=== PATIENT | male | born 1935 | race Caucasian/White ===

== ENCOUNTER 2016-09-29 16:22 | Inpatient (IN) | payer OTHER, MEDICARE ==
[~2016-09-29] VITALS: Ht 182.9 cm; Wt 79.4 kg
[~2016-09-29 16:22] MED LIST: ASPIRIN EC325 MG PO; ATORVASTATIN CA40 MG PO; COLCRYS0.6 MG PO; EXELON13.3 MG/24 TOP; PLAVIX 75MG TAB75 MG PO; PREVACID 30MG30 MG PO; RAPAFLO8 MG PO; WELCHOL 625 MG625 MG PO; [UNRECOGNIZED DRUG - OTHER] INH
--- NOTE | 2016-09-29 17:05 | NUR ---
PT TO ED FOR WORSENING COUGH AND AMS FOR THE PAST FEW DAYS, SIB BY ESTER. REPORTING WORSENING WEAKNESS OVER PAST TWO DAYS WELL PRODUCTIVE COUGH WITH "WHITE AND SOMETIMES AYLIN PHLEGM" PT ALERT AND ORIENTED TO PERSON AND PLACE BUT NOT TO TIME, NORMALLY AX0X4.
--- NOTE | 2016-09-29 17:19 | ED INFLUENZA/URI COMPLAINT ---
History of Present Illness General Chief Complaint: Upper Respiratory Sx/Fever Stated Complaint: AMS,PNEUONIA Source: patient, family Exam Limitations: confusion Vital Signs & Intake/Output Vital Signs & Intake/Output Vital Signs Date Time Temp Pulse Resp B/P Pulse O2 O2 Flow FiO2 Ox Delivery Rate 10/01 2200 144 10/01 2100 149 10/01 2000 140 10/01 1906 94 Room Air Room Air 10/01 1605 Room Air Room Air 10/01 1603 98.1 78 20 160/68 97 Room Air 10/01 1027 122/70 10/01 0816 98 Room Air 10/01 0800 98.3 93 20 120/60 95 Room Air ED Intake and Output 10/01 0000 09/30 1200 Intake Total 1500 480 Output Total 1600 500 Balance -100 -20 Intake, IV 100 Intake, Oral 1400 480 Number 1 Bowel Movements Output, Urine 1600 500 Allergies Coded Allergies: NSAIDS (Non-Steroidal Anti-Inflamma (INCREASED RENAL FUNCTIONS 09/29/16) Triage Note: PT TO ED FOR WORSENING COUGH AND AMS FOR THE PAST FEW DAYS, SIB BY ESTER. REPORTING WORSENING WEAKNESS OVER PAST TWO DAYS WELL PRODUCTIVE COUGH WITH "WHITE AND SOMETIMES AYLIN PHLEGM" PT ALERT AND ORIENTED TO PERSON AND PLACE BUT NOT TO TIME, NORMALLY AX0X4. Triage Nurses Notes Reviewed? yes HPI: Patient is an 80 year old male sent in by Dr. Norman for evaluation of cough and altered mental status. Patient reports symptoms x 2-3 days. Cough with white sputum production. Intermittent dyspnea. Symptoms are mild currently at rest. Symptoms have been moderate to severe. Son has noticed increasing confusion over the past 1-2 days. Tmax of 99.1 with associated chills. Patient received an influenza vaccination this season. Denies chest pain, abdominal pain, nausea , vomiting. (ZOE DUCKWORTH) Reconcile Medications Apixaban (Eliquis) 2.5 MG TABLET 1 TAB PO BID BLOOD THINNER (Reported) Atorvastatin Calcium 40 MG TABLET 1 TAB PO DAILY CHOLESTEROL (Reported) Azithromycin 500 MG TABLET 1 TAB PO DAILY COPD Lansoprazole 30 MG CAPSULE.DR 1 CAP PO DAILY GI (Reported) Memantine HCl (Namenda XR) 28 MG CAP.SPR.24 1 CAP PO DAILY MEMORY (Reported) Metoprolol Tartrate 25 MG TABLET 1 TAB PO BID HEART/BP (Reported) Metoprolol Tartrate (Lopressor) 50 MG TABLET 1 TAB PO BID atrial fibrillatino . Prednisone 10 MG TABLET 1 TAB PO DAILY COPD please take: 30 mg(3 tabs) on 10/03,10/04 20 mg(2 tabs) on 10/05,10/06 10 mg(1 tab) on 10/07,10/08 please stop on 10/08. Psyllium Husk/Aspartame (Metamucil Powder) (Unknown Strength) POWDER (Unknown Dose) PO DAILY GI (Reported) Rivastigmine (Exelon) 13.3 MG/24 HOUR PATCH.TD24 1 PAT TOP DAILY MEMORY ( Reported) Saw [place] Fruit (Saw [place]) 450 MG CAPSULE 1 CAP PO DAILY SUPPLEMENT ( Reported) (LUAN WESTON,OBI Bourgeois) Past History Travel History Traveled to [place] past 21 day No Medical History Any Pertinent Medical History? 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 No (ZOE DUCKWORTH) Review of Systems Review of Systems Constitutional: Reports: chills, fever, malaise. EENTM: Reports: no symptoms. Respiratory: Reports: cough, short of breath, sputum production. Cardiovascular: Denies: chest pain, peripheral edema. GI: Denies: abdominal pain, nausea, vomiting. Genitourinary: Reports: no symptoms. Musculoskeletal: Reports: no symptoms. Skin: Reports: no symptoms. Neurological/Psychological: Reports: confusion. Denies: headache, numbness. Hematologic/Endocrine: Denies: bruising, bleeding. Immunologic/Allergic: Denies: splenectomy. (ZOE DUCKWORTH) Physical Exam Physical Exam General Appearance: alert, awake Head: atraumatic, normal appearance Eyes: Bilateral: normal appearance, PERRL, EOMI. Ears, Nose, Throat: normal ENT inspection, moist mucous membrane, hearing grossly normal, pharynx normal Neck: normal inspection, supple, full range of motion Respiratory: normal breath sounds, no respiratory distress, lungs clear Cardiovascular: tachycardia, irregularly irregular Peripheral Pulses: 2+ dorsalis pedis (R), 2+ dorsalis pedis (L) Gastrointestinal: soft, non-tender Back: normal inspection, normal range of motion Extremities: trace bilateral lower extremity edema Neurologic/Psych: no motor/sensory deficits, awake, alert, normal gait, disoriented to time Skin: intact, normal color, warm/dry Lymphatic: no anterior cervical saúl Core Measures Severe Sepsis Present: No Septic Shock Present: No (ZOE DUCKWORTH) Progress Differential Diagnosis: influenza, pneumonia, pharyngitis, sinusitis, afib with RVR, ACS, bacteremia, sepsis, uti Plan of Care: Orders Procedure Date/time Status THERAPIST ORDERS 10/01 2001 Complete MISSING MEDICATION FORM 10/01 1615 Active MAGNESIUM 10/01 0625 Complete Therapeutic Activities 10/01 UNK Complete Gait Training 10/01 UNK Complete Lab Add-on Test 10/01 UNK Active Occupational Tx Eval & Treat 10/01 UNK Active Therapeutic Activity 10/01 UNK Complete OT EVAL LOW COMPLEX 30 MIN 10/01 UNK Complete ADL/SelfCare 10/01 UNK Complete Nursing Misc 10/01 UNK Active CIWA 10/01 UNK Active URINE DRUGS OF ABUSE 09/29 1855 Complete ETHANOL 09/29 1645 Complete Current Medications Sig/Ines Start time Last Medication Dose Stop Time Status Admin Metoprolol Tartrate 6.25 MG ONCE ONE 10/01 2315 UNVr (Lopressor) 10/01 2316 Acetaminophen 650 MG Q6P PRN 09/29 2145 AC (Tylenol) Laboratory Tests 10/01/16 0625: Anion Gap 10, Estimated GFR 58 L, BUN/Creatinine Ratio 19.2, Magnesium 2.0, Total Bilirubin 3.1 H, Direct Bilirubin 0.8 H, AST 31, ALT 35, Alkaline Phosphatase 81, Total Protein 6.9, Albumin 4.0, CBC w Diff NO MAN DIFF REQ, RBC 4.57 L, MCV 97.3 H, MCH 32.0 H, RDW 13.1, MPV 8.9, Gran % 67.5, Lymphocytes % 17.5 L, Monocytes % 14.6 H, Eosinophils % 0, Basophils % 0.4, Absolute Granulocytes 4.5, Absolute Lymphocytes 1.2, Absolute Monocytes 1.0 H, Absolute Eosinophils 0, Absolute Basophils 0, PUBS MCHC 32.8 L, Retic Count 2.19 H 1820: Results of labs and imaging discussed with the patient and his son. Bilirubin chronically elevated. Patient continues with A. fib with ventricular rate ranging from 100 to 130 beats per minute, no significant improvement with fluid bolus. Call placed to patient's primary doctor. Discussed with Dr. Guadarrama. Discussed with Dr. Cervantes: will admit patient. (MAUREEN LAWRENCE,ZOE) Diagnostic Imaging: Viewed by Me: Radiology Read. Discussed w/RAD: Radiology Read. CXR Impression: PATIENT: BRANDIE BOLANOS PRESENT AGE: 80 PATIENT ACCOUNT NO: [id number] : 33 LOCATION: [facility] ORDERING PHYSICIAN: OBI GUADARRAMA MD SERVICE DATE: 09/29/16 EXAM TYPE: RAD - XRY-CHEST XRAY, PA AND LATERAL EXAMINATION: CHEST 2 VIEWS CLINICAL INFORMATION: Cough, fever. COMPARISON: None. TECHNIQUE: PA and lateral views of the chest were obtained. FINDINGS: The cardiac silhouette is not enlarged. Pacer leads overlie the right atrium and right ventricle. Intact midline sternal wires are present. The mediastinal and hilar contours are unremarkable. There are neither pleural effusions nor pneumothoraces. There are no consolidations. Intact bilateral humeral prostheses are present. There are no acute osseous abnormalities. IMPRESSION: No evidence for acute disease. DICTATED BY: AMANDA FAGAN MD DATE/ TIME DICTATED:09/29/161811 CUSTOMER EXPERIENCE PROFESSIONAL:MARCOS DATE/TIME TRANSCRIBED: 09/29/161811 CONFIDENTIAL, DO NOT COPY WITHOUT APPROPRIATE AUTHORIZATION. < Electronically signed in Other Vendor System> SIGNED BY: AMANDA FAGAN MD 09/29/161815 Initial ED EKG: atrial fibrillation with rapid ventricular rate, ST depression in V3 through V6, changed from previous EKG Prior EKG: changed Rhythm Strip: atrial fibrillation (ZOE DUCKWORTH) Departure Departure Time of Disposition: 1837 Disposition: STILL A PATIENT Condition: Stable Clinical Impression Primary Impression: Atrial fibrillation with RVR Secondary Impressions: Bronchitis, Hyperbilirubinemia Referrals: KIT NORMAN MD (PCP/Family) Departure Forms: Customer Survey General Discharge Information Admission Note Spoke With: AMBROCIO CERVANTES MD Documentation of Exam: Documentation of any treatments & extenuating circumstances including Concerns Regarding Discharge (functional status, medication knowledge or non-compliance, living conditions, etc.) that warrant an admission rather than observation: TELEMETRY MONITORING, RATE CONTROL(REQUIRED DOSE OF IV BETA NAKITA IN THE ED), FURTHER MONITORING DUE TO INCREASING CONFUSION WITH ACUTE CHANGE FROM HIS BASELINE, SERIAL EKG, CARDIOLOGY CONSULTATION (ZOE DUCKWORTH) Departure Prescriptions: Current Visit Scripts Metoprolol Tartrate (Lopressor) 1 TAB PO BID #60 TAB . Azithromycin 1 TAB PO DAILY #3 TAB Prednisone 1 TAB PO DAILY #20 TAB please take: 30 mg(3 tabs) on 10/03,10/04 20 mg(2 tabs) on 10/05,10/06 10 mg(1 tab) on 10/07,10/08 please stop on 10/08. PA/RESTAURANT GREETER Co-Sign Statement Statement: ED Attending supervision documentation- [X] I saw and evaluated the patient. I have also reviewed all the pertinent lab results and diagnostic results. I agree with the findings and the plan of care as documented in the PA's/RESTAURANT GREETER's documentation. [X] I have reviewed the ED Record and agree with the PA's/RESTAURANT GREETER's documentation. [] Additions or exceptions (if any) to the PAs/RESTAURANT GREETER's note and plan are summarized below: [] (LUAN WESTON,OBI Bourgeois) Critical Care Note Critical Care Note Critical Care Time: 30-74 min (ZOE DUCKWORTH)
--- NOTE | 2016-09-29 17:28 | NUR ---
IV EST. BLOOD WORK DRAWN AND SENT TO LAB: SST, LAV, BLUE, NAGEL AND PINK TOPS. FIRST SET OF CULTURES ALSO SENT TO LAB. PT TO XRAY VIA STRETCHER NOW.
[2016-09-29 17:42] LABS: ABSOLUTE BASOPHIL COUNT 0 /CUMM (0.0-0.2); ABSOLUTE EOSINOPHIL COUNT 0 /CUMM (0.0-0.7); ABSOLUTE GRANULOCYTE CT 3.3 /CUMM (1.4-6.5); ABSOLUTE LYMPH COUNT 0.6 /CUMM (1.2-3.4); ABSOLUTE MONOCYTE COUNT 0.6 /CUMM (0.10-0.60); BASOPHIL % 0.5 % (0.0-2.0); EOSINOPHIL % 0.3 % (0-5); GRANULOCYTE % 73.4 % (42.2-75.2); HEMATOCRIT 43.5 % (42-52); MEAN CORPUSCULAR HGB 32.8 PG (27.0-31.0); MEAN CORPUSCULAR HGB CONC 34.1 G/DL (33.0-37.0); MEAN CORPUSCULAR VOLUME 96.3 FL (80.0-94.0); MEAN PLATELET VOLUME 8.1 FL (7.4-10.4); PLATELET COUNT 122 /CUMM (130-400); RBC DISTRIBUTION WIDTH 12.6 % (11.5-14.5); RED BLOOD CELL CT 4.51 /CUMM (4.70-6.10); WHITE BLOOD CELL COUNT 4.5 /CUMM (4.8-10.8)
--- NOTE | 2016-09-29 18:16 | RADIOLOGY REPORT ---
EXAMINATION: CHEST 2 VIEWS CLINICAL INFORMATION: Cough, fever. COMPARISON: None. TECHNIQUE: PA and lateral views of the chest were obtained. FINDINGS: The cardiac silhouette is not enlarged. Pacer leads overlie the right atrium and right ventricle. Intact midline sternal wires are present. The mediastinal and hilar contours are unremarkable. There are neither pleural effusions nor pneumothoraces. There are no consolidations. Intact bilateral humeral prostheses are present. There are no acute osseous abnormalities. IMPRESSION: No evidence for acute disease.
--- NOTE | 2016-09-29 19:02 | NUR ---
PT TACHYCARDIC 109-130'S, AFIB ON MONITOR WITH HISTORY OF THE SAME. PT MEDICATED WITH IV LOPRESSOR PER EMAR (DOSE VERIFIED WITH CANDI LONG.) PT ALSO MEDICATED WITH TYLENOL FOR FEVER. SECOND SET OF BLOOD CULTURES NEEDED PRIOR TO ADMINISTRATION OF ZITHROMAX.
[2016-09-29] MEDS ORDERED: EXELON1 EAC2 TOP (19:12)
[2016-09-29] MEDS ORDERED: LANSOPRAZOLE30 M2 PO (19:12)
[2016-09-29] MEDS ORDERED: METOPROLOL TART25 M1 PO (19:12)
[2016-09-29] MEDS ORDERED: ELIQUIS2.5 M1 PO (19:12)
[2016-09-29] MEDS ORDERED: NAMENDA XR28 M1 PO (19:12)
[2016-09-29] MEDS ORDERED: ATORVASTATIN CA40 M1 PO (19:13)
[2016-09-29] MEDS ORDERED: METAMUCIL POWD174 GM PO (19:14)
[2016-09-29] MEDS ORDERED: SAW PALMETTO450 M1 PO (19:14)
--- NOTE | 2016-09-29 19:48 | NUR ---
BED ASSIGNMENT [id number]
--- NOTE | 2016-09-29 19:50 | NUR ---
RESPIRATORY CALLED FOR TREATMENT, PT MEDICATED WITH 500MG ZITHROMAX PER EMAR
--- NOTE | 2016-09-29 19:52 | NUR ---
RESPIRATORY AT BEDSIDE FOR TREATMENT
--- NOTE | 2016-09-29 19:56 | NUR ---
REPORT GIVEN TO ETHAN PILLAI ON
--- NOTE | 2016-09-29 20:08 | History & Physical ---
SHALOM PRESTON MD 09/29/162007: General Information and HPI MD Statement: I have seen and personally examined BRANDIE BOLANOS and documented this H&P. The patient is a 80 year old M who presented with a patient stated chief complaint of cough and confusion. Source of Information: patient Exam Limitations: poor historian History of Present Illness: Mr. 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 Family is not at bedside at time of interview and history is limited as patient has clinical confusion. As per patient, he has noted coughing for about 1 week. This cough has progressively worsened and is associated with production of yellow sputum (non-bloody). He also noted increased weakness, confusion and intermittent dyspnea, all of which have been present for a few days. Associated symptoms include fever, decreased appetite, imbalance on ambulation and lethargy. Patient denies chills, throat pain, sinus congestion, chest pain, palpitations, abdominal pain, nausea, vomiting, dysuria, hematuria, difficulty moving his bowels or falls. Social history is significant for tobacco abuse in the past. He lives at home with his son and daughter in law, though he is by himself most of the day. He follows with Dr. Cuenca and Dr. Victor Hugo Benitez as his cardiologists. Allergies/Medications Allergies: Coded Allergies: NSAIDS (Non-Steroidal Anti-Inflamma (INCREASED RENAL FUNCTIONS 09/29/16) Home Med list Apixaban (Eliquis) 2.5 MG TABLET 1 TAB PO BID BLOOD THINNER (Reported) Atorvastatin Calcium 40 MG TABLET 1 TAB PO DAILY CHOLESTEROL (Reported) Lansoprazole 30 MG CAPSULE.DR 1 CAP PO DAILY GI (Reported) Memantine HCl (Namenda XR) 28 MG CAP.SPR.24 1 CAP PO DAILY MEMORY (Reported) Metoprolol Tartrate 25 MG TABLET 1 TAB PO BID HEART/BP (Reported) Psyllium Husk/Aspartame (Metamucil Powder) (Unknown Strength) POWDER (Unknown Dose) PO DAILY GI (Reported) Rivastigmine (Exelon) 13.3 MG/24 HOUR PATCH.TD24 1 PAT TOP DAILY MEMORY ( Reported) Saw Tendoy Fruit (Saw Tendoy) 450 MG CAPSULE 1 CAP PO DAILY SUPPLEMENT ( Reported) Compliance With Home Meds: UNKNOWN Past History Travel History Traveled to [place] past 21 day No Medical History Neurological: NONE EENT: NONE Cardiovascular: AFIB, aflutter, hypertension, hyperlipidemia, myocardial infarction Respiratory: COPD Gastrointestinal: GERD, GALLSTONES VENTRAL HERNIA Hepatic: NONE Renal: STAGE 2 KIDNEY DISEASE Musculoskeletal: gout, osteoarthritis Psychiatric: NONE Endocrine: NONE Blood Disorders: LYME DISEASE Cancer(s): SKIN CANCER YARN DUMPER/Reproductive: NONE History of MRSA: No History of VRE: No History of CDIFF: No Pneumonia Vaccine: 04/12/09 Influenza Vaccine: 05/01/14 Tetanus Vaccine: 04/04/12 Surgical History Surgical History: CABG, cardiac stent Past Family/Social History Family History Relations & Conditions if any FATHER FH: myocardial infarction MOTHER FH: myocardial infarction Psychosocial History Where do you live? Home Who Do You Live With? Family Services at Home: None Primary Language: Lithuanian Smoking Status: Former Smoker ETOH Use: denies use Illicit Drug Use: denies illicit drug use Living Will? yes Functional Ability ADLs Independent: dressing, eating, toileting, bathing. Ambulation: independent IADLs Independent: shopping, housework, finances, food prep, telephone, transportation , medication admin. Review of Systems Review of Systems Constitutional: Reports: fever, malaise. Denies: chills, weakness. EENTM: Denies: visual changes, nasal congestion, throat pain. Cardiovascular: Denies: chest pain, palpitations, syncope. Respiratory: Reports: cough, short of breath, sputum production. Denies: orthopnea. GI: Denies: abdominal pain, nausea, changes in stool, vomiting. Genitourinary: Denies: dysuria, hematuria, hesitation. Musculoskeletal: Reports: neck pain (Occasionally). Skin: Denies: lesions, rash. Neurological/Psychological: Reports: ataxia, confusion. Denies: headache, paresthesia, tremors. Hematologic/Endocrine: Denies: bruising, bleeding. Immunologic/Allergic: Denies: splenectomy. All Other Systems: Reviewed and Negative Exam & Diagnostic Data Last 24 Hrs of Vital Signs/I&O Vital Signs Date Time Temp Pulse Resp B/P Pulse O2 O2 Flow FiO2 Ox Delivery Rate 09/30 2043 98.3 113 22 102/58 92 Room Air 09/30 1955 97 Nasal 3.5L Cannula 09/30 1903 100.2 09/29 190 112 160/92 09/29 190 100.2 112 20 160/92 95 Room Air Room Air 09/29 1751 Room Air Room Air 09/29 1732 101 09/29 1705 98.1 135 16 132/74 99 Room Air Physical Exam General Appearance Alert, Cooperative, No Acute Distress, AAOx2 (patient thought he was at [facility]) Skin No Rashes, No Significant Lesion HEENT Atraumatic, PERRLA, EOMI, Mucous Membr. moist/pink Neck Supple, No JVD Lymphatic Cervical nl Cardiovascular Irregularly irregular, + PPM in right upper chest wall Lungs Diffuse wheezing with decreased breath sounds at the bases Abdomen Normal Bowel Sounds, Soft, No Tenderness, + midline ventral hernia, reducible Neurological Normal Speech, Strength at 5/5 X4 Ext, Normal Tone Extremities No Clubbing, No Cyanosis, No Edema, No Tenderness/Swelling Vascular Pulses Symmetrical Last 24 Hrs of Labs/Ramsey: Laboratory Tests 09/29/16 2006: Lactic Acid Cancelled 09/29/16 1855: Urine Color YEL, Urine Clarity HAZY H, Urine pH 6.0, Ur Specific [place] >= 1.030, Urine Protein 100 H, Urine Ketones 15 H, Urine Nitrite NEG, Urine Bilirubin SMALL H, Urine Urobilinogen 4.0 H, Ur Leukocyte Esterase NEG, Ur Microscopic SEDIMENT EXAMINED, Urine RBC >75 H, Urine WBC 3-5 H, Ur Epithelial Cells OCCAS, Urine Hemoglobin LARGE H, Urine Glucose NEG 09/29/16 1725: Lactic Acid 1.7, CBC w Diff NO MAN DIFF REQ, RBC 4.51 L, MCV 96.3 H, MCH 32.8 H, RDW 12.6, MPV 8.1, Gran % 73.4, Lymphocytes % 13.5 L, Monocytes % 12.3 H, Eosinophils % 0.3, Basophils % 0.5, Absolute Granulocytes 3.3, Absolute Lymphocytes 0.6 L, Absolute Monocytes 0.6, Absolute Eosinophils 0, Absolute Basophils 0, PUBS MCHC 34.1 09/29/16 1645: Anion Gap 14, Estimated GFR 49 L, BUN/Creatinine Ratio 19.3, Glucose 110 H, Calcium 9.2, Total Bilirubin 5.6 H, AST 29, ALT 32, Alkaline Phosphatase 97, Troponin I 0.02, Total Protein 7.4, Albumin 4.4, Globulin 3.0, Albumin/Globulin Ratio 1.5, TSH 1.330 Microbiology 09/30 1935 BLOOD: Blood Culture - RECD 09/29 1824 NASOPHARYN: Influenza Virus A & B Rapid Smear - COMP 09/29 172 BLOOD: Blood Culture - RECD Diagnostic Data EKG Results Atrial fibrillation with new T wave inversions in leads V2-V6, III, aVF CXR Results IMPRESSION: No evidence for acute disease. Assessment/Plan Assessment: Mr. 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 In the ED: Vital signs showed T 100.2, HR 112, RR 20, BP 160/92 and O2 saturation of 95% on room air. Labs were significant for WBC 4.5, Plt 122, BUN/ cre 27/1.4, lactic acid 1.7, TBili 5.6, trop 0.02, and normal TSH. UA showed high protein, ketones, small bili, 4 urobili, >75 RBCs, 3-5 WBC and large Hgb. CXR was negative for acute disease. EKG showed atrial fibrillation with new T wave inversions in leads V2-V6, III, aVF. Patient passed bedside swallow evaluation. Patient is admitted to the telemetry floor and the following is the management: 1. Cough productive of yellow sputum in the setting of COPD * Likely community acquired pneumonia vs. bronchitis with underlying COPD * Patient + for SIRS with tachycardia, leukopenia, low-grade fever * Patient given IV azithromycin and proventilin the ED * Will give an additional dose of ceftriaxone now * Follow up LRC, blood cultures * Consider continuation of ceftriaxone and azithromycin daily starting tomorrow * Repeat PA/lat CXR tomorrow * Rapid flu negative * F/U urine legionella, strep Ag * TRC nebs as needed * Patient is noted to have diffuse wheeze, prednisone 40 mg PO daily for now * Mucinex 600 mg PO Q12 2. Altered mental status/confusion * Patient does have baseline confusion and uses memantine/rivastigmine at home * Increase in confusion likely secondary to underlying infectious etiology * However, order ABG to rule out hypercarbia * IV fluids at 75 cc/h * Continue memantine, hold rivastigmine as it may contribute to confusion * If confusion does not improve, consider head CT 3. Atrial fibrillation with rapid ventricular response and new T wave inversions in leads V2-V6, III, aVF * Patient tachycardic up to 130s requiring a one time push of 2.5 mg IV metoprolol * Possibly 2/2 underlying infectious etiology * Continue 25 mg PO BID metoprolol * Continuous telemetry monitoring * First troponin negative, will trend trop/ekg to rule out ACS * Continue eliquis 2.5 mg PO BID 4. CKD stage 2 * Monitor BEP and electrolytes daily * IV fluids at 75 cc/h 5. Elevated total bilirubin * No abdominal complaints, no RUQ tenderness on palpation, though patient has a history of cholelithiasis * Direct bili added to admission labs, follow up results * Consider RUQ US if clinically indicated FULL CODE DVTP: SC Heparin Heart Healthy Diet Mild pain pathway As Ranked By This Provider Problem List: 1. Hyperbilirubinemia 2. Atrial fibrillation with RVR 3. GERD (gastroesophageal reflux disease) 4. CAD (coronary artery disease) 5. Full code status 6. DVT prophylaxis 7. SIRS (systemic inflammatory response syndrome) Core Measures/Miscellaneous Acute Coronary Syndrome ACS Diagnosis: No Cerebrovascular Accident CVA/TIA Diagnosis: No Congestive Heart Failure CHF Diagnosis: No Venous Thromboembolism VTE Risk Factors: Acute medical illness, Age > 40 No [facility] VTE prophylaxis d/t: No contraindications No VTE Pharm Prophylaxis d/t: No contraindications VTE Diagnosis: No VTE Type: NONE VTE Confirmed by (Test): NONE Severe Sepsis Severe Sepsis Present: No Septic Shock Septic Shock Present: No Miscellaneous Documentation Attending Case Discussed With: AMBROCIO MANNING MD Primary Care Physician: KIT TERRELL MD Patient sees these Specialists Dr. uCenca, Dr. Victor Hugo Benitez, Cardiologists Level of Patient Care: Telemetry BREANNA REYNOSO MD 09/29/16 2236: Resident Review Statement Resident Statement: examined this patient, discussed with internet marketing coordinator, agreed with internet marketing coordinator Other Findings: 80 y/o M with a PMH of HTN, HLD, CAD s/p CABG, PPM, Afib s/p ablation, CKD stage II, COPD, Dementia who presents to the ED with complaints of productive cough and altered mental status. Patient himself is unable to provide an accurate history. He states that he began having productive cough 1 week ago and started to feel weak over the last 48 hours. He was also noted to be more confused than baseline. Sputum is bright yellow in color. Denies any fevers, chills, dysuria, sick contacts, recent URI. His daughter called Dr. Terrell' office today and he was asked to come into the ED. In the ED, he was found to be tachycardic to the 130s and febrile. Vitals: Tachycardia to 130's, Hypoxia, currently saturating 97% on 3.5L Labs: CKD at baseline, Elevated Indirect Bilirubin to 4.4, Troponin X 1 WNL Imaging: CXR did not show the presence of any new changes. Exam: AAO x 2, not oriented to place. Diffuse wheezing noted bilaterally. Hernia noted 4 cm above the umbilicus. Problem List: 1) Afib with RVR 2) Clinical Pneumonia, no evidence of Influenza 3) Diffuse TWI noted in V2, V3, V4, V5, V6 with no other symptoms 4) H/O CAD s/p CABG 5) H/O CKD stage II, currently at baseline 6) H/O COPD 7) H/O HTN 8) H/O HLD 9) H/O OA Plan: * Admit to telemetry for Afib with RVR * Start Ceftriaxone and Azithromycin * NS at 75 ml/hr * Patient has an elevated indirect bilirubin, please check in AM and if it continues to remain high, might warrant a RUQ USG. * LRC, Urine Legionella and Strep Pneumo * TRC/Nebs * Prednisone 40 QD for possible bronchitis and wheezing * Trend Trops and EKG x 3 * Continue other medications except for Exelon patch, which may be contributing to his current confusion * DVT PPx: Subq heparin * Pain Pathway: Tylenol PRN * Code Status: Full Code AMBROCIO MANNING MD 09/30/16 0856: Attending MD Review Statement Attending Statement Attending MD Statement: examined this patient, discuss w/resident/PA/SEARCH ENGINE OPTIMIZATION STRATEGIST, discussed with family, reviewed EMR data (avail)
[2016-09-29 20:44] VITALS: BP 102/58
[2016-09-29 22:52] VITALS: BP 122/78
[2016-09-30 05:22] LABS: ABSOLUTE BASOPHIL COUNT 0 /CUMM (0.0-0.2); ABSOLUTE EOSINOPHIL COUNT 0 /CUMM (0.0-0.7); ABSOLUTE GRANULOCYTE CT 3.1 /CUMM (1.4-6.5); ABSOLUTE LYMPH COUNT 0.7 /CUMM (1.2-3.4); ABSOLUTE MONOCYTE COUNT 0.2 /CUMM (0.10-0.60); BASOPHIL % 0.3 % (0.0-2.0); EOSINOPHIL % 0 % (0-5); GRANULOCYTE % 78.7 % (42.2-75.2); HEMATOCRIT 40.5 % (42-52); MEAN CORPUSCULAR HGB 32.5 PG (27.0-31.0); MEAN CORPUSCULAR HGB CONC 33.4 G/DL (33.0-37.0); MEAN CORPUSCULAR VOLUME 97.2 FL (80.0-94.0); MEAN PLATELET VOLUME 8.5 FL (7.4-10.4); PLATELET COUNT 101 /CUMM (130-400); RBC DISTRIBUTION WIDTH 13.5 % (11.5-14.5); RED BLOOD CELL CT 4.16 /CUMM (4.70-6.10)
--- NOTE | 2016-09-30 05:53 | PN- Housestaff ---
Subjective Follow-up For: - Afib w/ RVR Tele-Events Since Last Visit: Wide-complex tachycardia, NSVT 55 seconds. This a.m. Subjective: He was comfortable this morning. Still complains of cough, productive, yellow sputum. Improved compared to yesterday. He remained afebrile overnight. Vitals were stable. Oxygen saturation in the range of 94-95% on room air. Review of Systems Constitutional: Reports: see HPI. Objective Last 24 Hrs of Vital Signs/I&O Vital Signs Date Time Temp Pulse Resp B/P Pulse O2 O2 Flow FiO2 Ox Delivery Rate 09/29 2357 111 122/78 09/29 2252 98.0 111 18 122/78 94 Room Air 09/29 2212 93 09/29 2044 98.3 113 22 102/58 92 Room Air 09/29 1956 97 Nasal 3.5L Cannula 09/29 190 100.2 09/29 1904 112 160/92 09/29 1904 100.2 112 20 160/92 95 Room Air Room Air 09/29 1751 Room Air Room Air 09/29 1732 101 09/29 1705 98.1 135 16 132/74 99 Room Air Intake & Output 09/30 0800 09/30 0000 09/29 1600 Intake Total 1240 Output Total Balance 1240 Intake, IV 1000 Intake, Oral 240 Patient 175 lb Weight Physical Exam General Appearance: No Acute Distress Other Physical Findings: General Exam: AAOx3, No acute distress, Skin: No rashes, no breakdown HEENT: PERRLA, EOMI Neck: Supple, No JVD No cervical lymphadenopathy CVS: Reg Rate, Normal S1,S2, No MGR Resp: Decreased air entry bilaterally, rhonchi and rales present bi-laterally. Abdomen: Soft, No tenderness, Normal Bowel Sounds Neuro: Normal Speech, Strength 5/5 b/l x 4 extremities, Sensation intact, CN III -XII NL, Reflexes 2+ Extremities: No cyanosis, pedal edema Current Medications: Current Medications Sig/Ines Start time Last Medication Dose Route Stop Time Status Admin Acetaminophen 650 MG Q6P PRN 09/29 214 AC PO Acetaminophen 650 MG ONCE ONE 09/29 1844 DC 09/29 PO 09/29 184 1904 Acetaminophen 0 .STK-MED ONE 09/30 1839 DC PO Albuterol Sulfate 3 ML ONCE ONE 09/30 1999 DC 09/29 INH 09/29 Apixaban 2.5 MG BID 09/29 2200 AC 09/29 PO 2358 Atorvastatin Calcium 40 MG 1700 09/30 1700 AC PO Azithromycin 500 MG ONCE ONE 09/29 1830 DC 09/29 Sodium Chloride 250 ML IV 09/29 1929 1944 Ceftriaxone Sodium 1,000 MG ONCE ONE 09/29 2230 DC 09/29 IV 09/29 2231 2358 Guaifenesin 600 MG Q12 09/29 2211 AC 09/29 PO 2358 Heparin Sodium 5,000 UNIT Q8 09/29 2200 AC 09/29 (Porcine) SC 2152 Memantine 10 MG BID 09/29 2200 AC 09/29 PO 2358 Metoprolol Tartrate 25 MG BID 09/29 2200 AC 09/29 PO 2357 Metoprolol Tartrate 2.5 MG ONCE ONE 09/29 1845 DC 09/29 IV 09/29 1846 1904 Metoprolol Tartrate 0 .STK-MED ONE 09/29 1841 DC IV Metoprolol Tartrate 5 MG ONCE ONE 09/29 1830 CAN IV 09/29 1831 Omeprazole 40 MG DAILY AC 09/30 0700 AC PO Prednisone 40 MG DAILY 09/29 2144 AC 09/29 PO 2358 Sodium Chloride 1,000 ML .[id number] 09/29 214 AC 09/29 IV 2152 Sodium Chloride 1,000 ML BOLUS ONE 09/29 1730 DC 09/29 IV 09/29 1829 1751 Last 24 Hrs of Lab/Ramsey Results Last 24 Hrs of Labs/Mics: Laboratory Tests 09/30/16 0445: Troponin I Pending 09/30/16 0445: Sodium Pending, Potassium Pending, Chloride Pending, Carbon Dioxide Pending, Anion Gap Pending, BUN Pending, Creatinine Pending, BUN/Creatinine Ratio Pending , Total Bilirubin Pending, CBC w Diff NO MAN DIFF REQ, RBC 4.16 L, MCV 97.2 H, MCH 32.5 H, RDW 13.5, MPV 8.5, Gran % 78.7 H, Lymphocytes % 16.6 L, Monocytes % 4.4, Eosinophils % 0, Basophils % 0.3, Absolute Granulocytes 3.1, Absolute Lymphocytes 0.7 L, Absolute Monocytes 0.2, Absolute Eosinophils 0, Absolute Basophils 0, PUBS MCHC 33.4 09/29/16 2340: pH 7.43, pCO2 38, pO2 69 L, HCO3 25, ABG O2 Sat (Measured) 93.0 L, P-50 (Temp Corrected) N, Carboxyhemoglobin 0.7 L, O2 Concentration % RA, Phlebotomy Draw Site RIGHT BRACHIAL 09/29/16 2220: Troponin I 0.05 09/29/16 2006: Lactic Acid Cancelled 09/29/16 1855: Urine Color YEL, Urine Clarity HAZY H, Urine pH 6.0, Ur Specific [place] >= 1.030, Urine Protein 100 H, Urine Ketones 15 H, Urine Nitrite NEG, Urine Bilirubin SMALL H, Urine Urobilinogen 4.0 H, Ur Leukocyte Esterase NEG, Ur Microscopic SEDIMENT EXAMINED, Urine RBC >75 H, Urine WBC 3-5 H, Ur Epithelial Cells OCCAS, Urine Hemoglobin LARGE H, Urine Glucose NEG 09/29/16 1725: Lactic Acid 1.7, CBC w Diff NO MAN DIFF REQ, RBC 4.51 L, MCV 96.3 H, MCH 32.8 H, RDW 12.6, MPV 8.1, Gran % 73.4, Lymphocytes % 13.5 L, Monocytes % 12.3 H, Eosinophils % 0.3, Basophils % 0.5, Absolute Granulocytes 3.3, Absolute Lymphocytes 0.6 L, Absolute Monocytes 0.6, Absolute Eosinophils 0, Absolute Basophils 0, PUBS MCHC 34.1 09/29/16 1645: Anion Gap 14, Estimated GFR 49 L, BUN/Creatinine Ratio 19.3, Glucose 110 H, Calcium 9.2, Total Bilirubin 5.6 H, Direct Bilirubin 1.2 H, AST 29, ALT 32, Alkaline Phosphatase 97, Troponin I 0.02, Total Protein 7.4, Albumin 4.4, Globulin 3.0, Albumin/Globulin Ratio 1.5, TSH 1.330 Microbiology 09/29 2246 URINE ROUT: Legionella Antigen - COLB 09/29 2246 URINE ROUT: Streptococcus pneumoniae Antigen (M - COLB 09/29 2209 LOWER RESP: Respiratory Culture - COLB 09/29 2209 LOWER RESP: Gram Stain - COLB 09/29 193 BLOOD: Blood Culture - RECD 09/29 182 NASOPHARYN: Influenza Virus A & B Rapid Smear - COMP 09/29 1724 BLOOD: Blood Culture - RECD Assessment/Plan Assessment: Mr Bhatti is an 80-year-old man with a past history of paroxysmal atrial fibrillation status post ablation and pacemaker implantation, hypertension, coronary artery disease/myocardial infarction status post CABG/PCI stent placement(? type unknown), hyperlipidemia, COPD (not on oxygen), CK D stage II is being evaluated for worsening cough x 1 wk. At the time of admission, vitals-temperature 98.1 (MAXIMUM TEMPERATURE 100.2), pulse rate 135 (tachycardia), respiratory rate 16, blood pressure 132/74, pulse ox 99% on room air. Lab findings indicated WBC 4.5, hemoglobin 14.8, hematocrit 43.5, platelets 122 (persistent thrombocytopenia-reasons unclear), normal electrolytes sodium 139, potassium 4.0. BUN 27, serum creatinine 1.4 (baseline 1.3), normal AST ALT-29, 32, total bilirubin 5.6, direct bilirubin 1.2( ? 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 Urinalysis revealed-elevated urine protein, leukocyte esterase and urine nitrate negative. Radiological findings-chest x-ray did not reveal any acute process. Admission diagnosis: #1 pneumonia leading to altered mental status Below is the problem list and plan: #1 cough- likely due to acute exacerbation of COPD or Pnemonia. TRC nebs as needed. Prednisone 40 mg by mouth daily. Repeat chest x-ray, after hydration. If the chest x-ray is abnormal, may continue ceftriaxone and azithromycin. Follow-up on lower respiratory cultures. Follow up on blood cultures. Monitor for fever and leukocytosis. #2 atrial fibrillation-had a history of atrial fibrillation status post ablation. Currently not on any beta blockers. Continue to apixaban. Dr. Lewis advising. #3 elevated bilirubin-causes unclear. Check reticulocyte count, LDH. He had elevated indirect bilirubin in the past. Hepatitis panel was negative in the past. Likely familial. Elevated unconjugated bilirubin. Thrombocytopenia and elevated bilirubin, levels-could likely be from alcohol use. #4 DVT prophylaxis-apixaban. Problem List: 1. Hyperbilirubinemia 2. Atrial fibrillation with RVR 3. CAD (coronary artery disease) Pain Ratin Pain Location: back Pain Goal: Pain 4 or less Pain Plan: tylenol prn Tomorrow's Labs & Rationales: CBC-to monitor for leukocytosis. Basic electrolyte panel and hepatic function test to monitor for abnormal renal function and elevated indirect bilirubin level. Discharge Plan Discharge Disposition: home Stable for Discharge? No Anticipated Discharge (Day): two days
[2016-09-30 06:51] VITALS: BP 144/50
--- NOTE | 2016-09-30 07:52 | NUR ---
AT APPROX 0630 PT WAS SEEN IN [facility] FOR 55 SECONDS, AND THEN ANOTHER 14 BEAT SHORTLY AFTER. PT WAS ALERT AND ORIENTED, WATCHING TV AND SAID HE FELT NO DIFFERENT, NO PAIN, NO INCREASED HR. VITALS WERE TAKEN AND EVERYTHING WAS WNL. DR SHALOM PRESTON CALLED AND NOTIFIED, STRIPS PLACED IN CHART.
--- NOTE | 2016-09-30 08:47 | Admission Certification ---
Admission Certification Certification Statement - As attending physician, I certify that at the time of - admission, based on clinical presentation, severity of - symptoms, need for further diagnostic testing and - therapeutic interventions, and risk of adverse outcomes - without in-hospital treatment, in my clinical assessment, - this patient requires an acute hospital stay for a minimum - of two nights or longer. I have also considered psychsocial - factors such as support system, advanced age, financial - issues, cognitive issues, and failed out-patient treatments, - past re-admission history, safety of patient, and lack of - compliance as applicable. Specific rationale supporting this admission is: Pneumonia, A. fib with RVR
--- NOTE | 2016-09-30 08:52 | PN- Att Addend ---
Attending Addendum Attending Brief Note He is a generally you have Patient complains of persistent cough and currently is off oxygen General Appearance: Alert, No Acute Distress Skin: Grossly normal HEENT: PEERLA Neck: Supple, No JVD Cardiovascular: Irregular rhythm Lungs: Coarse expiratory wheeze generalized Abdomen: Normal Bowel Sounds, Soft, No Tenderness Neurological: Normal Speech, Strength at 5/5 X4 Ext, Cranial Nerves 3-12 NL, Reflexes 2+ Extremities: No Clubbing, No Cyanosis, No Edema Vascular: Normal Pulses Assessment 80-year-old with history of atrial fibrillation status post ablation and pacemaker, hypertension, history of MA and COPD initially presented to the office with complaints of confusion and hypoxia. Patient was sent to the ER for admission. On admission he did not have leukocytosis and x-ray was negative however he was hypoxic on ABG and had mild fever. Flu is negative. He fulfills SIRS criteria without clear source. He is currently being treated for pneumonia and will get a repeat PA lateral chest x-ray today to rule out evolving pneumonia. He had runs of V. tach last night and atrial fibrillation is not well controlled. Plan Repeat x-ray PA lateral view Continue current antibiotics Follow sputum culture Cardiology evaluation for A. fib with RVR and runs of V. tach Continue prednisone by mouth Continue other home medications Current Medications Sig/Ines Start time Last Medication Dose Route Stop Time Status Admin Acetaminophen 650 MG Q6P PRN 09/29 2145 AC PO Acetaminophen 650 MG ONCE ONE 09/29 1845 DC 09/29 PO 09/29 184 1904 Acetaminophen 0 .STK-MED ONE 09/29 1840 DC PO Albuterol Sulfate 3 ML ONCE ONE 09/30 1999 DC 09/29 INH 09/29 Apixaban 2.5 MG BID 09/29 2199 AC 09/29 PO 2358 Atorvastatin Calcium 40 MG 1700 09/30 1700 AC PO Azithromycin 500 MG ONCE ONE 09/29 1830 DC 09/29 Sodium Chloride 250 ML IV 09/29 192 1944 Ceftriaxone Sodium 1,000 MG ONCE ONE 09/29 2229 DC 09/29 IV 09/29 2231 2358 Guaifenesin 600 MG Q12 09/29 2211 AC 09/29 PO 2358 Heparin Sodium 5,000 UNIT Q8 09/29 2199 AC 09/30 (Porcine) SC 0703 Memantine 10 MG BID 09/29 2199 AC 09/29 PO 2358 Metoprolol Tartrate 25 MG BID 09/29 2200 AC 09/29 PO 2357 Metoprolol Tartrate 2.5 MG ONCE ONE 09/29 1845 DC 09/29 IV 09/29 1846 1904 Metoprolol Tartrate 0 .STK-MED ONE 09/29 1841 DC IV Metoprolol Tartrate 5 MG ONCE ONE 09/29 1830 CAN IV 09/29 1831 Omeprazole 40 MG DAILY AC 09/30 0700 AC 09/30 PO 0659 Prednisone 40 MG DAILY 09/29 2144 AC 09/29 PO 2358 Sodium Chloride 1,000 ML .[id number] 09/29 214 AC 09/29 IV 2152 Sodium Chloride 1,000 ML BOLUS ONE 09/29 1730 DC 09/29 IV 09/29 1829 1751 Laboratory Tests 09/30 09/30 0445 0445 Chemistry Sodium (137 - 145 mmol/L) 137 Potassium (3.5 - 5.1 mmol/L) 4.2 Chloride (98 - 107 mmol/L) 102 Carbon Dioxide (22 - 30 mmol/L) 25 Anion Gap (5 - 16) 10 BUN (9 - 20 mg/dL) 25 H Creatinine (0.7 - 1.2 mg/dL) 1.2 Estimated GFR (>60 ml/min) 58 L BUN/Creatinine Ratio (7 - 25 %) 20.8 Magnesium (1.6 - 2.3 mg/dL) 1.7 Total Bilirubin (0.2 - 1.3 mg/dL) 4.9 H Troponin I (<0.11 ng/ml) 0.04 Hematology CBC w Diff NO MAN DIFF REQ WBC (4.8 - 10.8 /CUMM) 4.0 L RBC (4.70 - 6.10 /CUMM) 4.16 L Hgb (14.0 - 18.0 G/DL) 13.5 L Hct (42 - 52 %) 40.5 L MCV (80.0 - 94.0 FL) 97.2 H MCH (27.0 - 31.0 PG) 32.5 H RDW (11.5 - 14.5 %) 13.5 Plt Count (130 - 400 /CUMM) 101 L MPV (7.4 - 10.4 FL) 8.5 Gran % (42.2 - 75.2 %) 78.7 H Lymphocytes % (20.5 - 51.1 %) 16.6 L Monocytes % (1.7 - 9.3 %) 4.4 Eosinophils % (0 - 5 %) 0 Basophils % (0.0 - 2.0 %) 0.3 Absolute Granulocytes (1.4 - 6.5 /CUMM) 3.1 Absolute Lymphocytes (1.2 - 3.4 /CUMM) 0.7 L Absolute Monocytes (0.10 - 0.60 /CUMM) 0.2 Absolute Eosinophils (0.0 - 0.7 /CUMM) 0 Absolute Basophils (0.0 - 0.2 /CUMM) 0 PUBS MCHC (33.0 - 37.0 G/DL) 33.4 09/29 09/29 09/29 2340 2220 2005 Blood Gas pH (7.35 - 7.45 PH) 7.43 pCO2 (35 - 45 TORR) 38 pO2 (80 - 100 TORR) 69 L HCO3 (21 - 28 MEQ/L) 25 ABG O2 Sat (Measured) (>96.0 %) 93.0 L P-50 (Temp Corrected) N Carboxyhemoglobin (1.5 - 5.0 %) 0.7 L O2 Concentration % RA Chemistry Lactic Acid Cancelled Troponin I (<0.11 ng/ml) 0.05 Miscellaneous Phlebotomy Draw Site RIGHT BRACHIAL 09/29 09/29 2215 1725 Chemistry Lactic Acid (0.7 - 2.1 mmol/L) 1.7 Hematology CBC w Diff NO MAN DIFF REQ WBC (4.8 - 10.8 /CUMM) 4.5 L RBC (4.70 - 6.10 /CUMM) 4.51 L Hgb (14.0 - 18.0 G/DL) 14.8 Hct (42 - 52 %) 43.5 MCV (80.0 - 94.0 FL) 96.3 H MCH (27.0 - 31.0 PG) 32.8 H RDW (11.5 - 14.5 %) 12.6 Plt Count (130 - 400 /CUMM) 122 L MPV (7.4 - 10.4 FL) 8.1 Gran % (42.2 - 75.2 %) 73.4 Lymphocytes % (20.5 - 51.1 %) 13.5 L Monocytes % (1.7 - 9.3 %) 12.3 H Eosinophils % (0 - 5 %) 0.3 Basophils % (0.0 - 2.0 %) 0.5 Absolute Granulocytes (1.4 - 6.5 /CUMM) 3.3 Absolute Lymphocytes (1.2 - 3.4 /CUMM) 0.6 L Absolute Monocytes (0.10 - 0.60 /CUMM) 0.6 Absolute Eosinophils (0.0 - 0.7 /CUMM) 0 Absolute Basophils (0.0 - 0.2 /CUMM) 0 PUBS MCHC (33.0 - 37.0 G/DL) 34.1 Urines Urine Color (YEL,AMB,STR) YEL Urine Clarity (CLEAR) HAZY H Urine pH (5.0 - 8.0) 6.0 Ur Specific [employer] (1.001 - 1.035) >= 1.030 Urine Protein (NEG,<30 MG/DL) 100 H Urine Ketones (NEG) 15 H Urine Nitrite (NEG) NEG Urine Bilirubin (NEG) SMALL H Urine Urobilinogen (0.1 - 1.0 EU/dl) 4.0 H Ur Leukocyte Esterase (NEG) NEG Ur Microscopic SEDIMENT EXAMINED Urine RBC (0 - 5 /HPF) >75 H Urine WBC (0 - 2 /HPF) 3-5 H Ur Epithelial Cells (NONE,FEW) OCCAS Urine Hemoglobin (NEG) LARGE H Urine Glucose (N MG/DL) NEG 09/29 1645 Chemistry Sodium (137 - 145 mmol/L) 139 Potassium (3.5 - 5.1 mmol/L) 4.0 Chloride (98 - 107 mmol/L) 100 Carbon Dioxide (22 - 30 mmol/L) 25 Anion Gap (5 - 16) 14 BUN (9 - 20 mg/dL) 27 H Creatinine (0.7 - 1.2 mg/dL) 1.4 H Estimated GFR (>60 ml/min) 49 L BUN/Creatinine Ratio (7 - 25 %) 19.3 Glucose (65 - 99 mg/dL) 110 H Calcium (8.4 - 10.2 mg/dL) 9.2 Total Bilirubin (0.2 - 1.3 mg/dL) 5.6 H Direct Bilirubin (< 0.4 mg/dL) 1.2 H AST (17 - 59 U/L) 29 ALT (21 - 72 U/L) 32 Alkaline Phosphatase (< 127 U/L) 97 Troponin I (<0.11 ng/ml) 0.02 Total Protein (6.3 - 8.2 g/dL) 7.4 Albumin (3.5 - 5.0 g/dL) 4.4 Globulin (1.9 - 4.2 gm/dL) 3.0 Albumin/Globulin Ratio (1.1 - 2.2 %) 1.5 TSH (0.270 - 4.200 uIU/mL) 1.330 Vital Signs Date Time Temp Pulse Resp B/P Pulse O2 O2 Flow FiO2 Ox Delivery Rate 09/30 0651 98.2 98 20 144/50 93 Room Air 09/29 2357 111 122/78 09/29 2252 98.0 111 18 122/78 94 Room Air 09/29 2212 93 09/29 2044 98.3 113 22 102/58 92 Room Air 09/29 1956 97 Nasal 3.5L Cannula 09/29 1904 100.2 09/29 1904 112 160/92 09/29 1904 100.2 112 20 160/92 95 Room Air Room Air 09/29 1751 Room Air Room Air 09/29 1732 101 09/29 1705 98.1 135 16 132/74 99 Room Air
--- NOTE | 2016-09-30 12:59 | Cons- Cardiology ---
General Information and HPI Consulting Request Date of Consult: 09/30/16 Requested By: AMBROCIO MANNING MD Reason for Consult: Wide-complex tachycardia History of Present Illness: The patient is an 80-year-old male with history of paroxysmal atrial fibrillation, CAD, CABG, and permanent pacemaker. He is followed in the office by Dr. Cuenca from my group. He presented with complaint of increased cough, shortness of breath, weakness, and confusion over the past week. He is admitted for possible pneumonia. While in the hospital he was noted to have an episode of wide-complex tachycardia lasting approximately 55 seconds, which appears to represent ventricular tachycardia. he notes that his cough and shortness of breath partially better today. No chest pain. No palpitations. He did not note any sensation of racing heart at the time of the wide complex tachycardia Allergies/Medications Allergies: Coded Allergies: NSAIDS (Non-Steroidal Anti-Inflamma (INCREASED RENAL FUNCTIONS 09/29/16) Home Med List: Apixaban (Eliquis) 2.5 MG TABLET 1 TAB PO BID BLOOD THINNER (Reported) Atorvastatin Calcium 40 MG TABLET 1 TAB PO DAILY CHOLESTEROL (Reported) Lansoprazole 30 MG CAPSULE.DR 1 CAP PO DAILY GI (Reported) Memantine HCl (Namenda XR) 28 MG CAP.SPR.24 1 CAP PO DAILY MEMORY (Reported) Metoprolol Tartrate 25 MG TABLET 1 TAB PO BID HEART/BP (Reported) Psyllium Husk/Aspartame (Metamucil Powder) (Unknown Strength) POWDER (Unknown Dose) PO DAILY GI (Reported) Rivastigmine (Exelon) 13.3 MG/24 HOUR PATCH.TD24 1 PAT TOP DAILY MEMORY ( Reported) Saw [place] Fruit (Saw [place]) 450 MG CAPSULE 1 CAP PO DAILY SUPPLEMENT ( Reported) Current Medications: Current Medications Sig/Ines Start time Last Medication Dose Route Stop Time Status Admin Acetaminophen 650 MG Q6P PRN 09/29 2145 AC PO Acetaminophen 650 MG ONCE ONE 09/29 1844 DC 09/29 PO 09/29 1845 1904 Acetaminophen 0 .STK-MED ONE 09/29 1840 DC PO Albuterol Sulfate 3 ML BID 09/30 1000 AC 09/30 INH 0935 Albuterol Sulfate 3 ML ONCE ONE 09/30 1999 DC 09/29 INH 09/29 Apixaban 2.5 MG BID 09/29 2199 AC 09/30 PO 0905 Atorvastatin Calcium 40 MG 1700 09/30 1700 AC 09/30 PO 1555 Azithromycin 500 MG ONCE ONE 09/30 0930 DC 09/30 Sodium Chloride 250 ML IV 09/30 1029 1135 Azithromycin 500 MG ONCE ONE 09/29 1830 DC 09/29 Sodium Chloride 250 ML IV 09/29 1929 1944 Ceftriaxone Sodium 1,000 MG ONCE ONE 09/30 0945 DC 09/30 IV 09/30 0946 1135 Ceftriaxone Sodium 1,000 MG ONCE ONE 09/29 2230 DC 09/29 IV 09/29 2231 2358 Guaifenesin 600 MG Q12 09/29 2211 AC 09/30 PO 0906 Heparin Sodium 5,000 UNIT Q8 09/29 2200 AC 09/30 (Porcine) SC 1341 Magnesium Oxide 400 MG ONE ONE 09/30 0900 DC 09/30 PO 09/30 0901 0905 Memantine 10 MG BID 09/29 2200 AC 09/30 PO 0906 Metoprolol Tartrate 25 MG BID 09/29 2200 AC 09/30 PO 0909 Metoprolol Tartrate 2.5 MG ONCE ONE 09/29 1845 DC 09/29 IV 09/29 1846 1904 Metoprolol Tartrate 0 .STK-MED ONE 09/29 1841 DC IV Metoprolol Tartrate 5 MG ONCE ONE 09/29 1830 CAN IV 09/29 1831 Omeprazole 40 MG DAILY AC 09/30 0700 AC 09/30 PO 0659 Patient Medication 1 ED ONE ONE 09/30 1400 DC Teaching ED 09/30 1401 Prednisone 40 MG DAILY 09/29 2144 AC 09/30 PO 0906 Sodium Chloride 1,000 ML .[id number] 09/29 2145 DC 09/30 IV 1131 Sodium Chloride 1,000 ML BOLUS ONE 09/29 1730 DC 09/29 IV 09/29 1829 1751 Review of Systems Review of Systems: NBo rash. No tremor. No melena. No syncope. All other systems are reviewed and are noted to be negative. Past History Travel History Traveled to [place] past 21 day No Medical History Blood Transfusion Hx: No Neurological: NONE EENT: NONE Cardiovascular: AFIB, aflutter, hypertension, hyperlipidemia, myocardial infarction Respiratory: COPD Gastrointestinal: GERD, GALLSTONES VENTRAL HERNIA Hepatic: NONE Renal: STAGE 2 KIDNEY DISEASE Musculoskeletal: gout, osteoarthritis Psychiatric: NONE Endocrine: NONE Blood Disorders: LYME DISEASE Cancer(s): SKIN CANCER TIME STUDY STATISTICIAN/Reproductive: NONE Surgical History Surgical History: CABG, cardiac stent Family History Relations & Conditions If Any: FATHER FH: myocardial infarction MOTHER FH: myocardial infarction Psychosocial History Where Do You Live? Home Who Do You Live With? Family Services at Home: None Primary Language: Wallisian Smoking Status: Former Smoker ETOH Use: denies use Illicit Drug Use: denies illicit drug use Living Will? yes Functional Ability ADLs Independent: dressing, eating, toileting, bathing. Ambulation: independent IADLs Independent: shopping, housework, finances, food prep, telephone, transportation , medication admin. Exam & Diagnostic Data Vital Signs and I&O Vital Signs Date Time Temp Pulse Resp B/P Pulse O2 O2 Flow FiO2 Ox Delivery Rate 09/30 1600 Room Air 09/30 0929 Room Air Room Air 09/30 0929 95 Room Air Room Air 09/30 0909 102 150/82 09/30 0800 Room Air Room Air 09/30 0651 98.2 98 20 144/50 93 Room Air 09/29 2357 111 122/78 09/29 2252 98.0 111 18 122/78 94 Room Air 09/29 2212 93 09/29 2044 98.3 113 22 102/58 92 Room Air 09/29 1956 97 Nasal 3.5L Cannula 09/29 1904 100.2 09/29 1904 112 160/92 09/29 1904 100.2 112 20 160/92 95 Room Air Room Air 09/29 1751 Room Air Room Air 09/29 1732 101 09/29 1705 98.1 135 16 132/74 99 Room Air Intake & Output 09/30 1600 09/30 0800 09/30 0000 09/29 1600 09/29 0800 09/29 0000 Intake Total 672 200 5771 Output Total 1100 500 Balance -300 -20 1240 Intake, IV 1000 Intake, Oral 800 480 240 Number 1 Bowel Movements Output, Urine 1100 500 Patient 175 lb Weight Physical Exam: Gen: The patient is in no acute distress HEENT: Normal nose, ears, and oropharynx. Pupils equal bilaterally. Conjunctiva normal. Neck: Supple with no JVD, no masses, and no thyromegaly Lungs: bilateral wheezing with normal respiratory effort Heart: Irregular irregular, S1, S2, no murmurs. No peripheral edema, 2+ pulses in the lower extremities bilaterally Abdomen: Soft, nontender, no masses. No hepatomegaly. No splenomegaly Extremities: No clubbing or cyanosis. Normal muscle strength in the upper and lower extremities. Skin: Normal skin turgor with no skin ulcers or lesions noted. Neuro: Cranial nerves intact. Sensation intact Psych: Alert and oriented 3 with appropriate affect Labs/[place] Results: Laboratory Tests 09/30 09/30 0445 0445 Chemistry Sodium (137 - 145 mmol/L) 137 Potassium (3.5 - 5.1 mmol/L) 4.2 Chloride (98 - 107 mmol/L) 102 Carbon Dioxide (22 - 30 mmol/L) 25 Anion Gap (5 - 16) 10 BUN (9 - 20 mg/dL) 25 H Creatinine (0.7 - 1.2 mg/dL) 1.2 Estimated GFR (>60 ml/min) 58 L BUN/Creatinine Ratio (7 - 25 %) 20.8 Magnesium (1.6 - 2.3 mg/dL) 1.7 Total Bilirubin (0.2 - 1.3 mg/dL) 4.9 H Troponin I (<0.11 ng/ml) 0.04 Hematology CBC w Diff NO MAN DIFF REQ WBC (4.8 - 10.8 /CUMM) 4.0 L RBC (4.70 - 6.10 /CUMM) 4.16 L Hgb (14.0 - 18.0 G/DL) 13.5 L Hct (42 - 52 %) 40.5 L MCV (80.0 - 94.0 FL) 97.2 H MCH (27.0 - 31.0 PG) 32.5 H RDW (11.5 - 14.5 %) 13.5 Plt Count (130 - 400 /CUMM) 101 L MPV (7.4 - 10.4 FL) 8.5 Gran % (42.2 - 75.2 %) 78.7 H Lymphocytes % (20.5 - 51.1 %) 16.6 L Monocytes % (1.7 - 9.3 %) 4.4 Eosinophils % (0 - 5 %) 0 Basophils % (0.0 - 2.0 %) 0.3 Absolute Granulocytes (1.4 - 6.5 /CUMM) 3.1 Absolute Lymphocytes (1.2 - 3.4 /CUMM) 0.7 L Absolute Monocytes (0.10 - 0.60 /CUMM) 0.2 Absolute Eosinophils (0.0 - 0.7 /CUMM) 0 Absolute Basophils (0.0 - 0.2 /CUMM) 0 PUBS MCHC (33.0 - 37.0 G/DL) 33.4 09/29 09/29 09/29 2340 2220 2005 Blood Gas pH (7.35 - 7.45 PH) 7.43 pCO2 (35 - 45 TORR) 38 pO2 (80 - 100 TORR) 69 L HCO3 (21 - 28 MEQ/L) 25 ABG O2 Sat (Measured) (>96.0 %) 93.0 L P-50 (Temp Corrected) N Carboxyhemoglobin (1.5 - 5.0 %) 0.7 L O2 Concentration % RA Chemistry Lactic Acid Cancelled Troponin I (<0.11 ng/ml) 0.05 Miscellaneous Phlebotomy Draw Site RIGHT BRACHIAL 09/29 09/29 1855 1825 Serology Virus Culture Pending Urines Urine Color (YEL,AMB,STR) YEL Urine Clarity (CLEAR) HAZY H Urine pH (5.0 - 8.0) 6.0 Ur Specific [place] (1.001 - 1.035) >= 1.030 Urine Protein (NEG,<30 MG/DL) 100 H Urine Ketones (NEG) 15 H Urine Nitrite (NEG) NEG Urine Bilirubin (NEG) SMALL H Urine Urobilinogen (0.1 - 1.0 EU/dl) 4.0 H Ur Leukocyte Esterase (NEG) NEG Ur Microscopic SEDIMENT EXAMINED Urine RBC (0 - 5 /HPF) >75 H Urine WBC (0 - 2 /HPF) 3-5 H Ur Epithelial Cells (NONE,FEW) OCCAS Urine Hemoglobin (NEG) LARGE H Urine Glucose (N MG/DL) NEG 09/29 09/29 1725 1645 Chemistry Sodium (137 - 145 mmol/L) 139 Potassium (3.5 - 5.1 mmol/L) 4.0 Chloride (98 - 107 mmol/L) 100 Carbon Dioxide (22 - 30 mmol/L) 25 Anion Gap (5 - 16) 14 BUN (9 - 20 mg/dL) 27 H Creatinine (0.7 - 1.2 mg/dL) 1.4 H Estimated GFR (>60 ml/min) 49 L BUN/Creatinine Ratio (7 - 25 %) 19.3 Glucose (65 - 99 mg/dL) 110 H Lactic Acid (0.7 - 2.1 mmol/L) 1.7 Calcium (8.4 - 10.2 mg/dL) 9.2 Total Bilirubin (0.2 - 1.3 mg/dL) 5.6 H Direct Bilirubin (< 0.4 mg/dL) 1.2 H AST (17 - 59 U/L) 29 ALT (21 - 72 U/L) 32 Alkaline Phosphatase (< 127 U/L) 97 Troponin I (<0.11 ng/ml) 0.02 Total Protein (6.3 - 8.2 g/dL) 7.4 Albumin (3.5 - 5.0 g/dL) 4.4 Globulin (1.9 - 4.2 gm/dL) 3.0 Albumin/Globulin Ratio (1.1 - 2.2 %) 1.5 TSH (0.270 - 4.200 uIU/mL) 1.330 Hematology CBC w Diff NO MAN DIFF REQ WBC (4.8 - 10.8 /CUMM) 4.5 L RBC (4.70 - 6.10 /CUMM) 4.51 L Hgb (14.0 - 18.0 G/DL) 14.8 Hct (42 - 52 %) 43.5 MCV (80.0 - 94.0 FL) 96.3 H MCH (27.0 - 31.0 PG) 32.8 H RDW (11.5 - 14.5 %) 12.6 Plt Count (130 - 400 /CUMM) 122 L MPV (7.4 - 10.4 FL) 8.1 Gran % (42.2 - 75.2 %) 73.4 Lymphocytes % (20.5 - 51.1 %) 13.5 L Monocytes % (1.7 - 9.3 %) 12.3 H Eosinophils % (0 - 5 %) 0.3 Basophils % (0.0 - 2.0 %) 0.5 Absolute Granulocytes (1.4 - 6.5 /CUMM) 3.3 Absolute Lymphocytes (1.2 - 3.4 /CUMM) 0.6 L Absolute Monocytes (0.10 - 0.60 /CUMM) 0.6 Absolute Eosinophils (0.0 - 0.7 /CUMM) 0 Absolute Basophils (0.0 - 0.2 /CUMM) 0 PUBS MCHC (33.0 - 37.0 G/DL) 34.1 Diagnostic Data EKG Results EKG tracing is independently reviewed, and reveals atrial fibrillation with ventricular response of 114, nonspecific ST abnormality CXR Results chest x-ray: Gen: The patient is in no acute distress HEENT: Normal nose, ears, and oropharynx. Pupils equal bilaterally. Conjunctiva normal. Neck: Supple with no JVD, no masses, and no thyromegaly Lungs: Clear to auscultation with normal respiratory effort Heart: RRR, S1, S2, no murmurs. No peripheral edema, 2+ pulses in the lower extremities bilaterally Abdomen: Soft, nontender, no masses. No hepatomegaly. No splenomegaly Extremities: No clubbing or cyanosis. Normal muscle strength in the upper and lower extremities. Skin: Normal skin turgor with no skin ulcers or lesions noted. Neuro: Cranial nerves intact. Sensation intact Psych: Alert and oriented 3 with appropriate affect Other Results Echocardiogram 09/05/13: LVEF 55 dash 65%. Abnormal diastolic function. Minimal mitral regurgitation. Nuclear stress test September 05, 2013: Diaphragmatic attenuation is seen with no evidence of ischemia or infarct. LVEF 61%. Assessment/Plan Assessment/Plan Patient is an 80-year-old male with history of CAD, CABG, permanent pacemaker, and normal left ventricular function presenting with cough shortness of breath and weakness, admitted for possible pneumonia. The patient is noted to be in atrial fibrillation. He is anticoagulated on Eliquis.While on telemetry he is noted to have an episode of wide complex tachycardia lasting approximately 55 seconds. This appears to likely represent a slow ventricular tachycardia, however paced rhythm is also in the differential despite the fact that pacemaker spikes are not seen. Potassium is normal. Magnesium level is at the low end of the normal range. Recommendations: * Increase metoprolol to 50 milligrams p.o. b.i.d. * Continue Eliquis * Echocardiogram * Continue to monitor on telemetry for further arrhythmias * Supplement magnesium level to greater than 2.0 Consult Acknowledgment - Thank you for your consult request.
--- NOTE | 2016-09-30 14:40 | NUR ---
TELE EVENT: NOTIFIED BY ADMINISTRATIVE NURSING SUPERVISOR BY HAD 10 BEAT RUN OF V-TACH AT 7:40 AM WHILE I WAS IN THE ROOM. PT ASYMPTOMATIC AT THIS TIME. DENIES CP. DR PEREZ MADE AWARE. MEDS GIVEN PER EMAR. WILL CONTINUE TO MONITOR.
[2016-09-30 16:29] VITALS: BP 141/93
--- NOTE | 2016-09-30 16:35 | RADIOLOGY REPORT ---
EXAMINATION: XR CHEST CLINICAL INFORMATION: 80-year-old male with fever, leukocytosis, productive cough. COMPARISON: Chest done on 09/29/2016. TECHNIQUE: 2 views of the chest were obtained. FINDINGS: Mild hyperinflated lung field is present bilaterally. Both lung costello appear clear. The cardiomediastinal silhouette is within normal limits. There is no pleural effusion present. Postop changes of sternotomy is noted. Dual-lead pacer wires are present, appear intact. IMPRESSION: No radiographic evidence of any pneumonia.
[2016-09-30 21:51] VITALS: BP 142/80
[2016-09-30 22:00] VITALS: BP 130/70
--- NOTE | 2016-10-01 07:10 | PN- Housestaff ---
Subjective Follow-up For: - Cough - Afib Tele-Events Since Last Visit: Atrial fibrillation. No NSVT recorded. Subjective: Pt comfortable this am. He did not have any complaints. Still complains of cough , which is improved compared to yesterday. No issues overnight. Vitals were stable overnight, and she was afebrile. Review of Systems Constitutional: Reports: see HPI. Objective Last 24 Hrs of Vital Signs/I&O Vital Signs Date Time Temp Pulse Resp B/P Pulse O2 O2 Flow FiO2 Ox Delivery Rate 09/30 2150 97.4 102 18 142/80 95 Room Air 09/30 2144 102 142/80 09/30 1859 94 Room Air 09/30 1629 98.8 113 16 141/93 93 Room Air 09/30 1600 Room Air 09/30 0929 Room Air Room Air 09/30 0929 95 Room Air Room Air 09/30 0909 102 150/82 09/30 0800 Room Air Room Air Intake & Output 10/01 0800 10/01 0000 09/30 1600 Intake Total 700 800 Output Total 500 1100 Balance 200 -300 Intake, IV 100 Intake, Oral 600 800 Number 1 Bowel Movements Output, Urine 500 1100 Physical Exam General Appearance: No Acute Distress Skin: No Breakdown HEENT: EOMI Neck: No JVD, No thryomegaly Lymphatic: Cervical nl Cardiovascular: Normal S1, Normal S2 Lungs: decreased air entry pascual wheezes Abdomen: Soft, No Tenderness Neurological: Normal Speech, Strength at 5/5 X4 Ext, Normal Tone, Sensation Intact Extremities: No Edema Current Medications: Current Medications Sig/Ines Start time Last Medication Dose Route Stop Time Status Admin Acetaminophen 650 MG Q6P PRN 09/29 214 AC PO Albuterol Sulfate 3 ML BID 09/30 1000 AC 09/30 INH 1859 Apixaban 2.5 MG BID 09/29 2200 AC 09/30 PO 2144 Atorvastatin Calcium 40 MG 1700 09/30 1700 AC 09/30 PO 1555 Azithromycin 500 MG ONCE ONE 09/30 0930 DC 09/30 Sodium Chloride 250 ML IV 09/30 1029 1135 Ceftriaxone Sodium 1,000 MG ONCE ONE 09/30 0945 DC 09/30 IV 09/30 0946 1135 Guaifenesin 600 MG Q12 09/29 2211 AC 09/30 PO 2144 Heparin Sodium 5,000 UNIT Q8 09/29 2199 AC 10/01 (Porcine) SC 0600 Magnesium Oxide 400 MG ONE ONE 09/30 0900 DC 09/30 PO 09/30 0901 0905 Memantine 10 MG BID 09/29 220 AC 09/30 PO 2144 Metoprolol Tartrate 50 MG BID 09/30 2200 AC 09/30 PO 2144 Metoprolol Tartrate 25 MG BID 09/29 2200 DC 09/30 PO 0909 Omeprazole 40 MG DAILY AC 09/30 0700 AC 10/01 PO 0648 Patient Medication 1 ED ONE ONE 09/30 1400 DC Teaching ED 09/30 1401 Prednisone 40 MG DAILY 09/29 2144 AC 09/30 PO 0906 Sodium Chloride 1,000 ML .[id number] 09/29 2144 DC 09/30 IV 1131 Last 24 Hrs of Lab/[place] Results Last 24 Hrs of Labs/Mics: Laboratory Tests 10/01/16 0625: Sodium Pending, Potassium Pending, Chloride Pending, Carbon Dioxide Pending, Anion Gap Pending, BUN Pending, Creatinine Pending, BUN/Creatinine Ratio Pending , Total Bilirubin Pending, Direct Bilirubin Pending, AST Pending, ALT Pending, Alkaline Phosphatase Pending, Total Protein Pending, Albumin Pending, CBC w Diff Pending, WBC Pending, RBC Pending, Hgb Pending, Hct Pending, MCV Pending, MCH Pending, RDW Pending, Plt Count Pending, MPV Pending, PUBS MCHC Pending, Retic Count Pending Microbiology 09/30 744 URINE ROUT: Legionella Antigen - COMP 09/30 744 URINE ROUT: Streptococcus pneumoniae Antigen (M - COMP 09/30 744 LOWER RESP: Respiratory Culture - RES 09/30 744 LOWER RESP: Gram Stain - RES Assessment/Plan Assessment: Mr Bhatti is an 80-year-old man with a past history of paroxysmal atrial fibrillation status post ablation and pacemaker implantation, hypertension, coronary artery disease/myocardial infarction status post CABG/PCI stent placement(? type unknown), hyperlipidemia, COPD (not on oxygen), CK D stage II is being evaluated for worsening cough x 1 wk. Admission diagnosis: #1 pneumonia leading to altered mental status Below is the problem list and plan: #1 cough- likely due to acute bronchitis. TRC nebs as needed. Prednisone 40 mg by mouth daily. Repeat chest x-ray did not reveal any infiltrates. Follow-up on lower respiratory cultures. Follow up on blood cultures. Monitor for fever and leukocytosis. Continue azithromycin. #2 atrial fibrillation-had a history of atrial fibrillation status post ablation. No episodes of vtach. Continue to apixaban. Dr. Lewis advising. Metoprolol 50 BID. #3 elevated bilirubin-causes unclear. Check reticulocyte count, LDH. He had elevated indirect bilirubin in the past. Hepatitis panel was negative in the past. Likely familial. Elevated unconjugated bilirubin. Thrombocytopenia and elevated bilirubin, levels-could likely be from alcohol use. #4 DVT prophylaxis-apixaban. Problem List: 1. Hyperbilirubinemia 2. Bronchitis 3. Atrial fibrillation with RVR Pain Ratin Pain Location: lower extemieits Pain Goal: Pain 4 or less Pain Plan: tylenol prn Tomorrow's Labs & Rationales: no labs necessary. pt to be discharged.
[2016-10-01 07:58] LABS: ABSOLUTE BASOPHIL COUNT 0 /CUMM (0.0-0.2); ABSOLUTE EOSINOPHIL COUNT 0 /CUMM (0.0-0.7); ABSOLUTE LYMPH COUNT 1.2 /CUMM (1.2-3.4); BASOPHIL % 0.4 % (0.0-2.0)
[2016-10-01 08:00] VITALS: BP 120/60
[2016-10-01 08:25] LABS: ABSOLUTE GRANULOCYTE CT 4.5 /CUMM (1.4-6.5); EOSINOPHIL % 0 % (0-5); GRANULOCYTE % 67.5 % (42.2-75.2); HEMATOCRIT 44.5 % (42-52); MEAN CORPUSCULAR HGB CONC 32.8 G/DL (33.0-37.0); MEAN CORPUSCULAR VOLUME 97.3 FL (80.0-94.0); MEAN PLATELET VOLUME 8.9 FL (7.4-10.4); PLATELET COUNT 132 /CUMM (130-400); RBC DISTRIBUTION WIDTH 13.1 % (11.5-14.5); RED BLOOD CELL CT 4.57 /CUMM (4.70-6.10)
[2016-10-01] MEDS ORDERED: PREDNISONE10 M2 PO ×3 (08:26→14:13)
[2016-10-01 08:33] LABS: WHITE BLOOD CELL COUNT 6.7 /CUMM (4.8-10.8)
--- NOTE | 2016-10-01 08:33 | PN- Att Addend ---
Attending Addendum Attending Brief Note Reports improved symptoms and currently is off oxygen. Had an event of delirium last night. General Appearance: Alert, No Acute Distress Skin: Grossly normal HEENT: PEERLA Neck: Supple, No JVD Cardiovascular: Irregular rhythm Lungs: Coarse expiratory wheeze generalized Abdomen: Normal Bowel Sounds, Soft, No Tenderness Neurological: Normal Speech, Strength at 5/5 X4 Ext, Cranial Nerves 3-12 NL, Reflexes 2+ Extremities: No Clubbing, No Cyanosis, No Edema Vascular: Normal Pulses Assessment 80-year-old with history of atrial fibrillation status post ablation and pacemaker, hypertension, history of PA and COPD initially presented to the office with complaints of confusion and hypoxia. Patient was sent to the ER for admission. On admission he did not have leukocytosis and x-ray was negative however he was hypoxic on ABG and had mild fever. Flu is negative. He fulfills SIRS criteria without clear source. repeat PA lateral chest x-ray was clear. No new runs of vtach. Echo and sputum culture pending. Deliriunm in the setting of dementia. Plan Continue current antibiotics pending sputum culture echocardiogram Continue prednisone taper by mouth Continue other home medications
--- NOTE | 2016-10-01 08:55 | Patient Discharge Instructions ---
Discharge Instructions General Discharge Information You were seen/treated for: - Acute bronchitis Watch for these problems: - shortness of breath - chest pain - lightheadedness, dizziness Special Instructions: - Please see your PCP within one week of discharge. - Please take your medications as prescribed. - Please hold metoprolol, if HR is less than 50. Please talk to your complaint evaluation supervisor. Acute Coronary Syndrome Inclusion Criteria At DC or during hospital stay patient has or had the following: ACS DIAGNOSIS No Discharge Core Measures Meds if any: Prescribed or Continued at Discharge Meds if any: NOT Prescribed or Continued at Discharge Congestive Heart Failure Inclusion Criteria At DC or during hospital stay patient has or had the following: CHF DIAGNOSIS No Discharge Core Measures Meds if any: Prescribed or Continued at Discharge Meds if any: NOT Prescribed or Continued at Discharge Cerebrovascular accident Inclusion Criteria At DC or during hospital stay patient has or had the following: CVA/TIA Diagnosis No Discharge Core Measures Meds if any: Prescribed or Continued at Discharge Meds if any: NOT Prescribed or Continued at Discharge Venous thromboembolism Inclusion Criteria VTE Diagnosis No VTE Type NONE VTE Confirmed by (Test) NONE Discharge Core Measures - Per Current guidelines, there needs to be overlap - treatment for the first 5 days of Warfarin therapy. - If discharged on Warfarin prior to 5 days of - overlap therapy, the patient will need to be - assessed for post discharge needs including - *Post discharge parental anticoagulation - *Warfarin and/or parental anticoagulation education - *Follow up date to check INR post discharge At least 5 days overlap therapy as Inpatient No Meds if any: Prescribed or Continued at Discharge Note: Overlap Therapy is Warfarin and Anticoagulant Meds if any: NOT Prescribed or Continued at Discharge
--- NOTE | 2016-10-01 09:38 | PN- Cardiology ---
Subjective Subjective: To be alert and conversant, sitting in a bedside chair. No specific complaints. On the surveillance system monitor, the patient's heart rate is well-controlled. One episode of accelerated ventricular rhythm is noted. No tachyarrhythmias detected. Discharge planning pending Objective Vital Signs and I&Os Vital Signs Date Time Temp Pulse Resp B/P Pulse O2 O2 Flow FiO2 Ox Delivery Rate 10/01 0816 98 Room Air 10/01 0800 98.3 93 20 120/60 95 Room Air 09/30 2200 98.5 85 20 130/70 96 Room Air 09/30 2151 97.4 102 18 142/80 95 Room Air 09/30 2144 102 142/80 09/30 1859 94 Room Air 09/30 1629 98.8 113 16 141/93 93 Room Air 09/30 1600 Room Air Intake & Output 10/01 1600 10/01 0800 10/01 0000 09/30 1600 09/30 0800 09/30 0000 Intake Total 200 700 286 714 2318 Output Total 456 356 2454 500 Balance -200 200 -300 -20 1240 Intake, IV 100 1000 Intake, Oral 200 600 800 480 240 Number 1 Bowel Movements Output, Urine 024 608 2855 500 Patient 175 lb Weight Physical Exam: General: The patient is in no acute distress; alert; vital signs stable HEENT: Normal Neck: Supple with no JVD, no masses, and no thyromegaly; carotids normal bilaterally Lungs: Scattered bilateral rhonchi Heart: Irregular irregular, S1, S2, no murmurs. Abdomen: Soft, nontender, no masses. No hepatomegaly. No splenomegaly Extremities: No clubbing or cyanosis or edema. Skin: Normal Neuro: Nonfocal Current Medications: Current Medications Sig/Ines Start time Last Medication Dose Route Stop Time Status Admin Acetaminophen 650 MG Q6P PRN 09/29 2145 AC PO Albuterol Sulfate 3 ML BID 09/30 1000 AC 10/01 INH 0814 Apixaban 2.5 MG BID 09/29 2200 AC 09/30 PO 2144 Atorvastatin Calcium 40 MG 1700 09/30 1700 AC 09/30 PO 1555 Azithromycin 500 MG ONCE ONE 09/30 0930 DC 09/30 Sodium Chloride 250 ML IV 09/30 1029 1135 Ceftriaxone Sodium 1,000 MG ONCE ONE 09/30 0945 DC 09/30 IV 09/30 0946 1135 Guaifenesin 600 MG Q12 09/29 2210 AC 09/30 PO 214 Heparin Sodium 5,000 UNIT Q8 09/29 2199 AC 10/01 (Porcine) SC 0600 Memantine 10 MG BID 09/29 2199 AC 09/30 PO 214 Metoprolol Tartrate 50 MG BID 09/30 2199 AC 09/30 PO 2144 Metoprolol Tartrate 25 MG BID 09/29 220 DC 09/30 PO 0909 Omeprazole 40 MG DAILY AC 09/30 0700 AC 10/01 PO 0648 Patient Medication 1 ED ONE ONE 09/30 1400 DC Teaching ED 09/30 1401 Prednisone 40 MG DAILY 09/30 2143 AC 09/30 PO 0906 Sodium Chloride 1,000 ML .[id number] 09/29 2144 DC 09/30 IV 1131 Results Last 48 Hrs of Labs/Mics: Laboratory Tests 10/01/16 0625: Anion Gap 10, Estimated GFR 58 L, BUN/Creatinine Ratio 19.2, Magnesium 2.0, Total Bilirubin 3.1 H, Direct Bilirubin 0.8 H, AST 31, ALT 35, Alkaline Phosphatase 81, Total Protein 6.9, Albumin 4.0, CBC w Diff NO MAN DIFF REQ, RBC 4.57 L, MCV 97.3 H, MCH 32.0 H, RDW 13.1, MPV 8.9, Gran % 67.5, Lymphocytes % 17.5 L, Monocytes % 14.6 H, Eosinophils % 0, Basophils % 0.4, Absolute Granulocytes 4.5, Absolute Lymphocytes 1.2, Absolute Monocytes 1.0 H, Absolute Eosinophils 0, Absolute Basophils 0, PUBS MCHC 32.8 L, Retic Count 2.19 H 09/30/16 0445: Magnesium 1.7, Troponin I 0.04 09/30/16 0445: Anion Gap 10, Estimated GFR 58 L, BUN/Creatinine Ratio 20.8, Total Bilirubin 4.9 H, CBC w Diff NO MAN DIFF REQ, RBC 4.16 L, MCV 97.2 H, MCH 32.5 H, RDW 13.5, MPV 8.5, Gran % 78.7 H, Lymphocytes % 16.6 L, Monocytes % 4.4, Eosinophils % 0, Basophils % 0.3, Absolute Granulocytes 3.1, Absolute Lymphocytes 0.7 L, Absolute Monocytes 0.2, Absolute Eosinophils 0, Absolute Basophils 0, PUBS MCHC 33.4 09/29/16 2340: pH 7.43, pCO2 38, pO2 69 L, HCO3 25, ABG O2 Sat (Measured) 93.0 L, P-50 (Temp Corrected) N, Carboxyhemoglobin 0.7 L, O2 Concentration % RA, Phlebotomy Draw Site RIGHT BRACHIAL 09/29/16 2220: Troponin I 0.05 09/29/162005: Lactic Acid Cancelled 09/29/16 1855: Urine Color YEL, Urine Clarity HAZY H, Urine pH 6.0, Ur Specific [place] >= 1.030, Urine Protein 100 H, Urine Ketones 15 H, Urine Nitrite NEG, Urine Bilirubin SMALL H, Urine Urobilinogen 4.0 H, Ur Leukocyte Esterase NEG, Ur Microscopic SEDIMENT EXAMINED, Urine RBC >75 H, Urine WBC 3-5 H, Ur Epithelial Cells OCCAS, Urine Hemoglobin LARGE H, Urine Glucose NEG 09/29/16 182: Virus Culture Pending 09/29/16 172: Lactic Acid 1.7, CBC w Diff NO MAN DIFF REQ, RBC 4.51 L, MCV 96.3 H, MCH 32.8 H, RDW 12.6, MPV 8.1, Gran % 73.4, Lymphocytes % 13.5 L, Monocytes % 12.3 H, Eosinophils % 0.3, Basophils % 0.5, Absolute Granulocytes 3.3, Absolute Lymphocytes 0.6 L, Absolute Monocytes 0.6, Absolute Eosinophils 0, Absolute Basophils 0, PUBS MCHC 34.1 09/29/16 1645: Anion Gap 14, Estimated GFR 49 L, BUN/Creatinine Ratio 19.3, Glucose 110 H, Calcium 9.2, Total Bilirubin 5.6 H, Direct Bilirubin 1.2 H, AST 29, ALT 32, Alkaline Phosphatase 97, Troponin I 0.02, Total Protein 7.4, Albumin 4.4, Globulin 3.0, Albumin/Globulin Ratio 1.5, TSH 1.330 Microbiology 09/30 744 URINE ROUT: Legionella Antigen - COMP 09/30 744 URINE ROUT: Streptococcus pneumoniae Antigen (M - COMP 09/29 1824 NASOPHARYN: Influenza Virus A & B Rapid Smear - COMP Assessment/Plan Assessment/Plan Assessment: 1. Atrial fibrillation on anticoagulant therapy 2. Nonsustained wide-complex tachycardia 3. Permanent pacemaker 4. History of coronary artery disease, status post bypass surgery 5. Mild macrocytosis 6. History of hypertension 7. History of hyperlipidemia Recommendations: -At the present time, the surveillance system monitor was discontinued earlier today in anticipation of patient's discharge. Review of the surveillance system monitor prior to that time shows no significant arrhythmias over the last 24 hours. -Continue current medical regimen - Echocardiogram pending -The patient will follow-up with his regular plasticator Dr. Cuenca following discharge. -Discuss with the patient and his daughter. Continue telemetry? No
[2016-10-01] MEDS ORDERED: LOPRESSOR50 M1 PO (11:13)
[2016-10-01] MEDS ORDERED: AZITHROMYCIN500 M3 PO (14:12)
[2016-10-01 16:03] VITALS: BP 160/68
[2016-10-01 23:46] VITALS: BP 118/80
--- NOTE | 2016-10-02 07:28 | PN- Housestaff ---
Subjective Follow-up For: - altered mental status Tele-Events Since Last Visit: Afib w/ one event of NSVT. Subjective: Mr Bhatti was more sleepy compared to yesterday. Did not have any major complaints; cough improving, productive. Remained afebrile overnight. Vitals stable. After the team spoke to the family, it was ascertained that there was a component of alcohol use, which was likely contributing the acute confusion. He was started to be moniotored on CIWA protocol. Review of Systems Constitutional: Reports: see HPI. Objective Last 24 Hrs of Vital Signs/I&O Vital Signs Date Time Temp Pulse Resp B/P Pulse O2 O2 Flow FiO2 Ox Delivery Rate 10/02 0000 94 10/01 2346 98.0 126 18 118/80 93 10/01 2313 140 164/84 10/01 2200 144 10/01 2100 149 10/01 2000 140 10/01 1906 94 Room Air Room Air 10/01 1605 Room Air Room Air 10/01 1603 98.1 78 20 160/68 97 Room Air 10/01 1027 122/70 10/01 0816 98 Room Air Intake & Output 10/02 1600 10/02 0800 10/02 0000 Intake Total 840 Output Total Balance 840 Intake, IV 600 Intake, Oral 240 Physical Exam General Appearance: Cooperative, No Acute Distress Other Physical Findings: General Exam: AAOx3, No acute distress, Skin: No rashes, no breakdown HEENT: PERRLA, EOMI Neck: Supple, No JVD No cervical lymphadenopathy CVS: Reg Rate, Normal S1,S2, No MGR Resp: Decreased air entry bilaterally, rhonchi bilaterally. Abdomen: Soft, No tenderness, Normal Bowel Sounds Neuro: Normal Speech, Strength 5/5 b/l x 4 extremities, Sensation intact, CN III -XII NL, Reflexes 2+ Extremities: No cyanosis, pedal edema Current Medications: Current Medications Sig/Ines Start time Last Medication Dose Route Stop Time Status Admin Acetaminophen 650 MG Q6P PRN 09/29 2145 AC PO Albuterol Sulfate 3 ML BID 09/30 1000 AC 10/01 INH 1905 Apixaban 2.5 MG BID 09/29 2200 AC 10/01 PO 2313 Atorvastatin Calcium 40 MG 1700 09/30 1700 AC 10/01 PO 1733 Azithromycin 500 MG ONCE ONE 10/01 1345 DC 10/01 Sodium Chloride 250 ML IV 10/01 1444 1608 Guaifenesin 600 MG Q12 09/29 2211 AC 10/01 PO 2313 Heparin Sodium 5,000 UNIT Q8 09/29 2200 DC 10/02 (Porcine) SC 0626 Lorazepam 0 Q1P PRN 10/01 1530 AC 10/01 IV 2236 Memantine 10 MG BID 09/29 2200 AC 10/01 PO 2313 Metoprolol Tartrate 6.25 MG ONCE ONE 10/01 2315 CAN PO 10/01 2316 Metoprolol Tartrate 50 MG BID 09/30 2200 AC 10/01 PO 2313 Omeprazole 40 MG DAILY AC 09/30 0700 AC 10/02 PO 0626 Prednisone 40 MG DAILY 09/29 2144 AC 10/01 PO 1027 Rivastigmine 9.5 MG DAILY 10/01 1345 AC 10/01 TOP 1733 Sodium Chloride 1,000 ML Q13H 10/01 1345 DC 10/01 IV 10/02 0244 1609 Assessment/Plan Assessment: Mr Bhatti is an 80-year-old man with a past history of paroxysmal atrial fibrillation status post ablation and pacemaker implantation, hypertension, coronary artery disease/myocardial infarction status post CABG/PCI stent placement(? type unknown), hyperlipidemia, COPD (not on oxygen), CK D stage II is being evaluated for worsening cough x 1 wk. Admission diagnosis: #1 pneumonia leading to altered mental status Below is the problem list and plan: #1 cough- likely due to acute bronchitis. TRC nebs as needed. Prednisone 40 mg by mouth daily. Repeat chest x-ray did not reveal any infiltrates. Follow-up on lower respiratory cultures. Follow up on blood cultures. Monitor for fever and leukocytosis. Continue azithromycin. #2 atrial fibrillation-had a history of atrial fibrillation status post ablation. One episode of vtach. Continue to apixaban. Dr. Lewis advising. Metoprolol 50 BID. May have to increase the dose of metoprolol. #3 elevated bilirubin-causes unclear. Likely alcohol intake. He had elevated indirect bilirubin in the past. Hepatitis panel was negative in the past. Elevated unconjugated bilirubin. Thrombocytopenia and elevated bilirubin, levels-could likely be from alcohol use. Continue to monitor. #4 DVT prophylaxis-apixaban. Problem List: 1. Hyperbilirubinemia 2. Atrial fibrillation with RVR 3. Bronchitis Pain Ratin Pain Location: - none Pain Goal: Pain 4 or less Pain Plan: tylenol prn Tomorrow's Labs & Rationales: cbc- to check for leucocytosis bep- monitor potassium and magnesium. pt had low electrolytes. DVT/Prophylaxis: pharmacological (apixaban)
[2016-10-02 08:00] VITALS: BP 142/70
[2016-10-02] MEDS ORDERED: SYMBICORT 16010.2 GM INH (08:26)
--- NOTE | 2016-10-02 08:42 | PN- Att Addend ---
Attending Addendum Attending Brief Note No events overnight. he received 2 doses of Ativan last night for agitation. In General Appearance: Alert, No Acute Distress Skin: Grossly normal HEENT: PEERLA Neck: Supple, No JVD Cardiovascular: Irregular rhythm Lungs: Coarse expiratory wheeze generalized Abdomen: Normal Bowel Sounds, Soft, No Tenderness Neurological: Normal Speech, Strength at 5/5 X4 Ext, Cranial Nerves 3-12 NL, Reflexes 2+ Extremities: No Clubbing, No Cyanosis, No Edema Vascular: Normal Pulses Assessment 80-year-old with history of atrial fibrillation status post ablation and pacemaker, hypertension, history of HI and COPD initially presented to the office with complaints of confusion and hypoxia. Patient was sent to the ER for admission. On admission he did not have leukocytosis and x-ray was negative however he was hypoxic on ABG and had mild fever. Flu is negative. He fulfills SIRS criteria without clear source. repeat PA lateral chest x-ray was clear. Sputum culture was negative and we will continue azithromycin for bronchitis with prednisone taper. Suspect delirium in the setting of dementia and ALL withdrawals unlikely. Will discontinue Ativan and plan to discharge patient to rehabilitation. Plan Discontinue Ativan Start Symbicort 2 puffs twice a day Continue current antibiotics echocardiogram Continue prednisone taper by mouth Continue other home medications Plan for discharge to rehabilitation Current Medications Sig/Ines Start time Last Medication Dose Route Stop Time Status Admin Acetaminophen 650 MG Q6P PRN 09/29 2145 AC PO Albuterol Sulfate 3 ML BID 09/30 1000 AC 10/01 INH 1905 Apixaban 2.5 MG BID 09/29 2200 AC 10/01 PO 231 Atorvastatin Calcium 40 MG 1700 09/30 1700 AC 10/01 PO 1733 Azithromycin 500 MG ONCE ONE 10/02 1400 AC Sodium Chloride 250 ML IV 10/02 1459 Azithromycin 500 MG ONCE ONE 10/01 1345 DC 10/01 Sodium Chloride 250 ML IV 10/01 1444 1608 Guaifenesin 600 MG Q12 09/29 2211 AC 10/01 PO 231 Heparin Sodium 5,000 UNIT Q8 09/29 220 DC 10/02 (Porcine) SC 0626 Lorazepam 0 Q1P PRN 10/01 1530 AC 10/01 IV 2236 Memantine 10 MG BID 09/29 2200 AC 10/01 PO 2313 Metoprolol Tartrate 6.25 MG ONCE ONE 10/01 2315 CAN PO 10/01 2316 Metoprolol Tartrate 50 MG BID 09/30 2200 AC 10/01 PO 2313 Omeprazole 40 MG DAILY AC 09/30 0700 AC 10/02 PO 0626 Prednisone 40 MG DAILY 09/29 2144 AC 10/01 PO 1027 Rivastigmine 9.5 MG DAILY 10/01 1345 AC 10/01 TOP 1733 Sodium Chloride 1,000 ML Q13H 10/01 1345 DC 10/01 IV 10/02 0244 1609 Vital Signs Date Time Temp Pulse Resp B/P Pulse O2 O2 Flow FiO2 Ox Delivery Rate 10/02 0800 98.3 93 20 142/70 95 Room Air 10/02 0000 94 10/01 2346 98.0 126 18 118/80 93 10/01 2312 140 164/84 10/01 2199 144 10/01 2100 149 10/01 2000 140 10/01 1906 94 Room Air Room Air 10/01 1605 Room Air Room Air 10/01 1603 98.1 78 20 160/68 97 Room Air 10/01 1027 122/70
[2016-10-02] MEDS ORDERED: LOPRESSOR50 M1 PO (10:15)
--- NOTE | 2016-10-02 11:18 | ECHOCARDIOGRAM REPORT ---
BRANDIE BOLANOS Age: 80 : 1935 Gender: M Exam Date: 10/01/2016 17:00 Exam Location: [address] Ht (in): 72 Wt (lb): 175 BSA: 2.01 BP: 122 / 70 Ordering Physician: JENNY RUCKER MD Referring Physician: Wesley Lewis MD Technologist: Cherry Evans [facility] Room Number: 178 Indications: SUPRAVENTRICULAR TACHYCARDIA Rhythm: Atrial fibrillation Technical Quality: Good FINDINGS Left Ventricle Normal left ventricular size and wall thickness. Normal left ventricular ejection fraction visually estimated at >60%. Normal left ventricular wall motion. Right Ventricle Normal right ventricular size and function. Right Atrium Normal right atrial size. Left Atrium Mild left atrial dilatation. Mitral Valve Moderate mitral annular calcification. Mitral valve thickened. Mild mitral regurgitation. Aortic Valve Diffuse thickening (sclerosis) of the aortic valve cusps without reduced excursion. No aortic stenosis. No aortic regurgitation. Tricuspid Valve Tricuspid valve not well visualized, grossly normal. Mild tricuspid regurgitation. No evidence of pulmonary hypertension. Pulmonic Valve Pulmonic valve not well visualized, grossly normal. Pericardium No pericardial effusion. Great Vessels CONCLUSIONS Normal left ventricular size and wall thickness. Normal left ventricular ejection fraction visually estimated at > 60%. Mild left atrial dilatation. Mild mitral regurgitation. Mild mitral regurgitation. Mild tricuspid regurgitation. Wesley Lewis M.D. (Electronically Signed) Final Date: 02 October 2016 11:17 MEASUREMENTS (Male / Female) Normal Values 2D ECHO LV Diastolic Diameter PLAX 4.7 cm 4.2 - 5.9 / 3.9 - 5.3 cm LV Systolic Diameter PLAX 2.3 cm 2.1 - 4.0 cm LV Fractional Shortening PLAX 51.1 % 25 - 46 % LV Ejection Fraction 2D Teich 82.3 % IVS Diastolic Thickness 1.2 cm LVPW Diastolic Thickness 1.1 cm LV Relative Wall Thickness 0.5 RV Internal Dim ED PLAX 2.1 cm 1.9 - 3.8 cm LVOT Diameter 1.8 cm Aortic Root Diameter 3.3 cm LA Systolic Diameter LX 4.8 cm 3.0 - 4.0 / 2.7 - 3.8 cm LA Volume 45.0 cm 18 - 58 / 22 - 52 cm Ascending Aorta Diameter 3.4 cm DOPPLER AV Peak Velocity 104.0 cm/s AV Peak Gradient 4.3 mmHg AV Mean Velocity 71.6 cm/s AV Mean Gradient 2.0 mmHg AV Velocity Time Integral 17.8 cm LVOT Peak Velocity 60.9 cm/s LVOT Peak Gradient 1.5 mmHg LVOT Mean Velocity 45.3 cm/s LVOT Mean Gradient 1.0 mmHg LVOT Velocity Time Integral 13.6 cm LVOT Stroke Volume 34.6 cm AV Area Cont Eq vti 1.9 cm AV Area Cont Eq pk 1.5 cm MV Peak Velocity 88.8 cm/s MV Peak Gradient 3.2 mmHg MV Mean Velocity 45.1 cm/s MV Mean Gradient 1.0 mmHg Mitral E Point Velocity 100.0 cm/s MV PHT Velocity 94.6 cm/s MV Deceleration [place] 539.0 cm/s MV Pressure Half Time 52.7 ms MV Area PHT 4.2 cm MV Deceleration Time 164.0 ms TR Peak Velocity 270.0 cm/s TR Peak Gradient 29.2 mmHg Right Atrial Pressure 5.0 mmHg Pulmonary Artery Systolic Pressu 34.2 mmHg Right Ventricular Systolic Press 34.2 mmHg PV Peak Velocity 92.0 cm/s PV Peak Gradient 3.4 mmHg PV Mean Velocity 62.4 cm/s PV Mean Gradient 2.0 mmHg PV Velocity Time Integral 19.8 cm LV E' Lateral Velocity 10.3 cm/s Mitral E to LV E' Lateral Ratio 9.7 LV E' Septal Velocity 8.3 cm/s Mitral E to LV E' Septal Ratio 12.1
--- NOTE | 2016-10-02 11:55 | PN- Cardiology ---
Subjective Subjective: Ports that he is feeling mostly well. He continues to have a cough which is improving. No chest pain. No shortness of breath. No diaphoresis. No palpitations. He remains in atrial fibrillation with ventricular rate mildly elevated. Objective Vital Signs and I&Os Vital Signs Date Time Temp Pulse Resp B/P Pulse O2 O2 Flow FiO2 Ox Delivery Rate 10/02 0931 95 Room Air Room Air 10/02 0842 140/88 10/02 0800 98.3 93 20 142/70 95 Room Air 10/02 0000 94 10/01 2346 98.0 126 18 118/80 93 10/01 2313 140 164/84 10/01 2200 144 10/01 2100 149 10/01 2000 140 10/01 1906 94 Room Air Room Air 10/01 1605 Room Air Room Air 10/01 1603 98.1 78 20 160/68 97 Room Air Intake & Output 10/02 1600 10/02 0800 10/02 0000 10/01 1600 10/01 0800 10/01 0000 Intake Total 840 200 700 Output Total 400 500 Balance 840 -200 200 Intake, IV 600 100 Intake, Oral 240 200 600 Output, Urine 400 500 Physical Exam: Gen: The patient is in no acute distress HEENT: Normal nose, ears, and oropharynx. Pupils equal bilaterally. Conjunctiva normal. Neck: Supple with no JVD, no masses, and no thyromegaly Lungs: bilateral wheezing with normal respiratory effort Heart: Irregular irregular, S1, S2, no murmurs. No peripheral edema, 2+ pulses in the lower extremities bilaterally Abdomen: Soft, nontender, no masses. No hepatomegaly. No splenomegaly Extremities: No clubbing or cyanosis. Normal muscle strength in the upper and lower extremities. Skin: Normal skin turgor with no skin ulcers or lesions noted. Current Medications: Current Medications Sig/Ines Start time Last Medication Dose Route Stop Time Status Admin Acetaminophen 650 MG Q6P PRN 09/29 2145 AC PO Albuterol Sulfate 3 ML BID 09/30 1000 AC 10/02 INH 0908 Apixaban 2.5 MG BID 09/29 2200 AC 10/02 PO 0842 Atorvastatin Calcium 40 MG 1700 09/30 1700 AC 10/01 PO 1733 Azithromycin 500 MG ONCE ONE 10/02 1400 AC Sodium Chloride 250 ML IV 10/02 1459 Azithromycin 500 MG ONCE ONE 10/01 1345 DC 10/01 Sodium Chloride 250 ML IV 10/01 1444 1608 Budesonide/ 2 PUF BID 10/02 1015 AC Formoterol Fumarate INH Guaifenesin 600 MG Q12 09/29 2211 AC 10/01 PO 2313 Heparin Sodium 5,000 UNIT Q8 09/29 2200 DC 10/02 (Porcine) SC 0626 Lorazepam 0 Q1P PRN 10/01 1530 AC 10/01 IV 2236 Memantine 10 MG BID 09/29 2200 AC 10/02 PO 0841 Metoprolol Tartrate 6.25 MG ONCE ONE 10/01 2315 CAN PO 10/01 2316 Metoprolol Tartrate 50 MG BID 09/30 2200 AC 10/02 PO 0842 Omeprazole 40 MG DAILY AC 09/30 0700 AC 10/02 PO 0626 Patient Medication 1 ED ONE ONE 10/02 1130 DC Teaching ED 10/02 1131 Prednisone 40 MG DAILY 09/29 2144 AC 10/02 PO 0841 Rivastigmine 9.5 MG 1730 10/02 1730 AC TOP Rivastigmine 9.5 MG DAILY 10/01 1345 DC 10/01 TOP 1733 Sodium Chloride 1,000 ML Q13H 10/01 1345 DC 10/01 IV 10/02 0244 1609 Results Last 48 Hrs of Labs/Mics: Laboratory Tests 10/01/16 0625: Anion Gap 10, Estimated GFR 58 L, BUN/Creatinine Ratio 19.2, Magnesium 2.0, Total Bilirubin 3.1 H, Direct Bilirubin 0.8 H, AST 31, ALT 35, Alkaline Phosphatase 81, Total Protein 6.9, Albumin 4.0, CBC w Diff NO MAN DIFF REQ, RBC 4.57 L, MCV 97.3 H, MCH 32.0 H, RDW 13.1, MPV 8.9, Gran % 67.5, Lymphocytes % 17.5 L, Monocytes % 14.6 H, Eosinophils % 0, Basophils % 0.4, Absolute Granulocytes 4.5, Absolute Lymphocytes 1.2, Absolute Monocytes 1.0 H, Absolute Eosinophils 0, Absolute Basophils 0, PUBS MCHC 32.8 L, Retic Count 2.19 H Recent Imaging Studies: Echocardiogram: Normal left ventricular size and wall thickness. Normal left ventricular ejection fraction visually estimated at > 60%. Mild left atrial dilatation. Mild mitral regurgitation. Mild mitral regurgitation. Mild tricuspid regurgitation. Assessment/Plan Assessment/Plan Assessment: 1. Atrial fibrillation on anticoagulant therapy 2. Nonsustained wide-complex tachycardia 3. Permanent pacemaker 4. History of coronary artery disease, status post bypass surgery 5. Mild macrocytosis 6. History of hypertension 7. History of hyperlipidemia Plan: * Increase metoprolol to 100 mg PO twice a day * Continue Eliquis. Please increase Eliquis dose to 5 mg twice a day which is the appropriate dose given his renal function, age, and weight * Agree with plan for possible discharge today. * Follow up in 2 weeks. Continue telemetry? Yes
[2016-10-02] MEDS ORDERED: ELIQUIS5 M1 PO (12:41)
--- NOTE | 2016-10-02 12:51 | Discharge Summary ---
Visit Information Visit Dates Admission Date: 09/29/16 Discharge Date: 10/02/16 Hospital Course Course Attending Physician: AMBROCIO MANNING MD Primary Care Physician: KIT NORMAN MD Hospital Course: Mr Bhatti is an 80-year-old man with a past history of paroxysmal atrial fibrillation status post ablation and pacemaker implantation, hypertension, coronary artery disease/myocardial infarction status post CABG/PCI stent placement(? type unknown- sees Dr. Cuenca), hyperlipidemia, COPD (not on oxygen), CK D stage II is being evaluated for worsening cough x 1 wk prior to admission. At the time of admission, vitals-temperature 98.1 (MAXIMUM TEMPERATURE 100.2), pulse rate 135 (tachycardia), respiratory rate 16, blood pressure 132/74, pulse ox 99% on room air. Lab findings indicated WBC 4.5, hemoglobin 14.8, hematocrit 43.5, platelets 122 (persistent thrombocytopenia-reasons unclear), normal electrolytes sodium 139, potassium 4.0. BUN 27, serum creatinine 1.4 (baseline 1.3), normal AST ALT-29, 32, total bilirubin 5.6, direct bilirubin 1.2(? Increased indirect bilirubin likely unconjugated from Gilbert syndrome or alcohol use). Urinalysis revealed-elevated urine protein, leukocyte esterase and urine nitrate negative. Radiological findings-chest x-ray did not reveal any acute process. Chest x-ray-did not reveal any infiltrative process, ruling out pneumonia. Admission diagnosis: #1 pneumonia leading to altered mental status Below is the problem list and plan: #1 cough- likely due to acute bronchitis/acute exacerbation of COPD. TRC nebs were provided as needed. Started on oral prednisone 40 mg by mouth daily. He was discharged with recommendation to complete oral prednisone taper. #2 atrial fibrillation-had a history of atrial fibrillation status post ablation. At the time of admission, the patient had atrial fibrillation. During the stay in the hospital, he had nonsustained V. tach after which the dose of metoprolol was increased to 100 mg by mouth twice a day. Advised the patient to follow up with the commercial escrow assistant for further titration as needed. Also, the dose of apixaban was increased to 5 mg by mouth twice a day based on his renal function. Although he has chronic kidney disease, he currently had normal creatinine clearance, for which appropriate dose adjustment was made. Dr. Lewis was consulted for advice. #3 elevated bilirubin-causes unclear. He had elevated indirect bilirubin in the past. Hepatitis panel was negative in the past. Likely familial. Elevated unconjugated bilirubin, which trended down. Thrombocytopenia and elevated bilirubin, levels-could likely be from alcohol use. No further investigation was done during this admission. #4 growth of staph aureus in lower respiratory cultures- on day 3 of admission, lower respiratory cultures revealed growth of staph aureus. He did not have any hospital admissions, or stay at a long-term/short-term healthcare facility in the last 90 days. Suspect MSSA, but community-acquired MRSA was on the differential and so doxycycline was begun. #4 DVT prophylaxis-apixaban. Allergies: Coded Allergies: NSAIDS (Non-Steroidal Anti-Inflamma (INCREASED RENAL FUNCTIONS 09/29/16) Pertinent Lab Results: > GRAM STAIN Final 09/30/16-1056 WHITE BLOOD CELLS MANY SQUAMOUS CELLS FEW GRAM POSITIVE COCCI RARE GRAM POSITIVE RODS RARE > LOWER RESPIRATORY CULTURE Preliminary 10/02/16-1246 Mixed ana after 2 days with Scant growth of : STAPH AUREUS ISOLATED Disposition Summary Disposition Principal Diagnosis: Acute on chronic bronchitis Additional Diagnosis: Acute exacerbation of COPD Staph aureus positive bronchitis Discharge Disposition: SNF Discharge Instructions General Discharge Information Code Status: Full Code Patient's Diet: Heart healthy diet Patient's Activity: As tolerated Follow-Up Instructions/Appts: #1 please follow up with her primary care provider within one to 2 weeks of discharge #2 please follow-up with your commercial escrow assistant within 1-2 weeks of discharge #3 please take your medications as prescribed #4 please avoid excess exposure to sunlight, until the dose of doxycycline is completed. Medications at Discharge Discharge Medications: Stop taking the following medications: Metoprolol Tartrate (Metoprolol Tartrate) 25 MG TABLET ORAL TWICE DAILY Qty = 180 Apixaban (Eliquis) 2.5 MG TABLET ORAL TWICE DAILY Qty = 180 Continue taking these medications: Memantine HCl (Namenda XR) 28 MG CAP.SPR.24 1 Capsule ORAL DAILY Qty = 30 Comments: GIVEN 10/02/16 @ 0845 Rivastigmine (Exelon) 13.3 MG/24 HOUR PATCH.TD24 1 Patch On the skin DAILY Qty = 90 Comments: GIVEN 10/01/16 @ 9274 Lansoprazole (Lansoprazole) 30 MG CAPSULE.DR 1 Capsule ORAL DAILY Qty = 90 Comments: GIVEN 10/02/16 @ 0630 Atorvastatin Calcium (Atorvastatin Calcium) 40 MG TABLET 1 Tablet ORAL DAILY Qty = 90 Comments: GIVEN 10/01/16 @ 1730 Psyllium Husk/Aspartame (Metamucil Powder) 3.4 GRAM/5.8 GRAM POWDER ORAL DAILY Comments: NOT GIVEN Saw Cambria Fruit (Saw Cambria) 450 MG CAPSULE 1 Capsule ORAL DAILY Comments: NOT GIVEN Metoprolol Tartrate (Lopressor) 50 MG TABLET 2 Tablet ORAL TWICE DAILY Qty = 60 Instructions: Please hold for HR < 50 bpm. Please call your commercial escrow assistant, for further advice. Comments: GIVEN 10/02/16 @ 0845 This prescription has been renewed Start taking the following new medications: Prednisone (Prednisone) 10 MG TABLET 1 Tablet ORAL DAILY Qty = 20 No Refills Instructions: please take: 30 mg(3 tabs) on 10/03,10/04 20 mg(2 tabs) on 10/05,10/06 10 mg(1 tab) on 10/07,10/08 please stop on 10/08. Comments: GIVEN 10/02/16 @ 0845 Metoprolol Tartrate (Lopressor) 50 MG TABLET 1 Tablet ORAL TWICE DAILY Qty = 60 No Refills Instructions: . Budesonide/Formoterol Fumarate (Symbicort 160-4.5 Mcg Inhaler) 160 MCG-4.5 MCG/ ACTUATION HFA.AER.AD 2 Puff Inhale through mouth TWICE DAILY Qty = 1 No Refills Comments: GIVEN 10/02/16 @ 1225 Apixaban (Eliquis) 5 MG TABLET 1 Tablet ORAL TWICE DAILY Qty = 60 No Refills Comments: GIVEN 10/02/16 @ 0845 Doxycycline Hyclate (Doxycycline Hyclate) 100 MG CAPSULE 1 Capsule ORAL TWICE DAILY Qty = 20 No Refills Comments: NOT GIVEN Copies To: NIGEL WESTON,AMBROCIO; MARIAA WESTON,ANNA Moreno
[2016-10-02] MEDS ORDERED: DOXYCYCLINE HY100 M2 PO (13:58)
[2016-10-02 15:02] VITALS: BP 140/88
== END 2016-10-02 16:20 | DRG 191 ==
LOC: ERH 16:22 → ENPENDDIS 18:38 → 1NO 18:38 → ERHI 18:38 → 1NO 20:26
PROVIDERS: Emergency Medicine; Internal Medicine; Internal Medicine Endocrinology, Diabetes & Metabolism; ADMIT Internal Medicine
DX: J44.0 Chronic obstructive pulmonary disease with (acute) lower respiratory infection (principal); I47.2 Ventricular tachycardia; D69.6 Thrombocytopenia, unspecified; I48.0 Paroxysmal atrial fibrillation; I48.91 Unspecified atrial fibrillation; A49.01 Methicillin susceptible Staphylococcus aureus infection, unspecified site; Z95.1 Presence of aortocoronary bypass graft; J20.8 Acute bronchitis due to other specified organisms; Z79.01 Long term (current) use of anticoagulants; I12.9 Hypertensive chronic kidney disease with stage 1 through stage 4 chronic kidney disease, or unspecified chronic kidney disease; N18.2 Chronic kidney disease, stage 2 (mild); Z95.0 Presence of cardiac pacemaker; E78.5 Hyperlipidemia, unspecified; I25.2 Old myocardial infarction; Z87.891 Personal history of nicotine dependence; I25.10 Atherosclerotic heart disease of native coronary artery without angina pectoris; J44.1 Chronic obstructive pulmonary disease with (acute) exacerbation
CPT/HCPCS: 1NP; 87184; 80307; 81001; 82436; 87040; 87070; 87086; 87147; 87449; 87450; 87804; 87804-59; 93005; 93010; 93306; 96374; 96375; 97116-GO; 97161-GP; 97165-GO; 97530-GO; G0480; J0456; J0696; J1644; J3490; J7040